=== PATIENT | male | born 1960 ===

== ENCOUNTER 2022-05-12 16:02 | Emergency (ER) | payer SELFPAY ==
[~2022-05-12] VITALS: Ht 177 cm; Wt 83.0 kg
[2022-05-12] MEDS ORDERED: LACTATED RINGERS 1,000 ML IV STA (16:17)
--- NOTE | 2022-05-12 16:24 | ED Cardiac General ---
History of Present Illness General Chief Complaint: Chest Pain Stated Complaint: CHEST PAIN Nursing Triage Note: CHEST PAIN STARTING X 3 DAYS AGO. SENT OVER FROM THE CLINIC VIA EMS. PT TOOK ASA AT HOME AND NITRO PASTE WAS PLACED ON CHEST BY EMS. Source: patient, RN/MD, EMS Exam Limitations: no limitations History of Present Illness Date Seen by Provider: May 12, 2022 Time Seen by Provider: 16:07 Initial Comments 61-year-old male with no pertinent past medical history coming in via EMS from [facility] due to chest pain. The patient states he felt like his heart was racing on Wednesday and had chest discomfort at that time. Is intermittently happened for few minutes at a time. Started again earlier today, felt like his heart was "beating through his neck". States he drinks 2 cups of coffee a day roughly drinks roughly 2 beers a day, but Wednesday night did have roughly 8 beers while playing poker with friends. Denies this ever happening before. Denies any history of CAD, no cardiac stenting, no prior history of DVT or PE, no lower extremity swelling or pain, no hormone use, no hemoptysis, no recent surgery, no recent long travel. Feels normal right now and back to baseline. He took full dose aspirin earlier today. Allergies and Home Medications Allergies Coded Allergies: No Known Drug Allergies (Unverified , 05/12/22) Patient Home Medication List Home Medication List Reviewed: Yes Review of Systems Review of Systems Constitutional: No fever EENTM: No Symptoms Reported Respiratory: No Symptoms Reported Cardiovascular: See HPI Gastrointestinal: No Symptoms Reported Genitourinary: No Symptoms Reported Musculoskeletal: no symptoms reported Skin: no symptoms reported Psychiatric/Neurological: No Symptoms Reported Endocrine: No Symptoms Reported Past Poglhma-Wwopaa-Vjdnhd Hx Patient Social History Tobacco Use?: Yes Smoking Status: Current Everyday Smoker Substance use?: No Alcohol Use?: Yes Alcohol Frequency: Couple times a week Immunizations Up To Date First/Initial COVID19 Vaccinat: UNKNOWN COVID19 Vaccine Diplomatic Interpreter/Translator: SUDHIR Past Medical History Surgeries: No Physical Exam Vital Signs Vital Signs - First Documented 05/12/22 16:06 Temp 36.3 Pulse 92 Resp 16 B/P (MAP) 112/83 (93) Pulse Ox 97 O2 Delivery Room Air Capillary Refill : Less Than 3 Seconds Height, Weight, BMI Height: '" Weight: lbs. oz. kg; 26.00 BMI Method: General Appearance: No Apparent Distress, WD/WN HEENT: PERRL/EOMI, Normal ENT Inspection, Pharynx Normal Neck: Full Range of Motion, Normal Inspection, Non Tender, Supple Respiratory: Chest Non Tender, Lungs Clear, Normal Breath Sounds, No Accessory Muscle Use, No Respiratory Distress Cardiovascular: Regular Rate, Rhythm, No Edema, Normal Peripheral Pulses Gastrointestinal: Normal Bowel Sounds, Non Tender, Soft; No Distended, No Guarding Extremity: Normal Capillary Refill, Normal Inspection, Normal Range of Motion, Non Tender, No Calf Tenderness, No Pedal Edema Neurologic/Psychiatric: Alert, No Motor/Sensory Deficits, Normal Mood/Affect Skin: Normal Color, Warm/Dry Progress/Results/Core Measures Results/Orders Lab Results Laboratory Tests Test 05/12/22 16:10 Range/Units White Blood Count 7.3 4.3-11.0 10^3/uL Red Blood Count 4.45 4.30-5.52 10^6/uL Hemoglobin 15.4 13.3-17.7 g/dL Hematocrit 44 40-54 % Mean Corpuscular Volume 98 80-99 fL Mean Corpuscular Hemoglobin 35 H 25-34 pg Mean Corpuscular Hemoglobin Concent 35 32-36 g/dL Red Cell Distribution Width 11.7 10.0-14.5 % Platelet Count 143 130-400 10^3/uL Mean Platelet Volume 10.7 9.0-12.2 fL Immature Granulocyte % (Auto) 0 % Neutrophils (%) (Auto) 51 42-75 % Lymphocytes (%) (Auto) 33 12-44 % Monocytes (%) (Auto) 8 0-12 % Eosinophils (%) (Auto) 6 0-10 % Basophils (%) (Auto) 1 0-10 % Neutrophils # (Auto) 3.8 1.8-7.8 10^3/uL Lymphocytes # (Auto) 2.4 1.0-4.0 10^3/uL Monocytes # (Auto) 0.6 0.0-1.0 10^3/uL Eosinophils # (Auto) 0.5 H 0.0-0.3 10^3/uL Basophils # (Auto) 0.1 0.0-0.1 10^3/uL Immature Granulocyte # (Auto) 0.0 0.0-0.1 10^3/uL Prothrombin Time 14.0 12.2-14.7 SEC INR Comment 1.0 0.8-1.4 Activated Partial Thromboplast Time 36 H 24-35 SEC Sodium Level 141 135-145 MMOL/L Potassium Level 4.2 3.6-5.0 MMOL/L Chloride Level 104 98-107 MMOL/L Carbon Dioxide Level 28 21-32 MMOL/L Anion Gap 9 5-14 MMOL/L Blood Urea Nitrogen 12 7-18 MG/DL Creatinine 1.35 H 0.60-1.30 MG/DL Estimat Glomerular Filtration Rate 60 BUN/Creatinine Ratio 9 Glucose Level 153 H 70-105 MG/DL Calcium Level 8.9 8.5-10.1 MG/DL Corrected Calcium 8.7 8.5-10.1 MG/DL Magnesium Level 2.0 1.6-2.4 MG/DL Total Bilirubin 0.5 0.1-1.0 MG/DL Aspartate Amino Transf (AST/SGOT) 148 H 5-34 U/L Alanine Aminotransferase (ALT/SGPT) 190 H 0-55 U/L Alkaline Phosphatase 83 40-136 U/L Troponin I < 0.028 <0.028 NG/ML Total Protein 6.8 6.4-8.2 GM/DL Albumin 4.2 3.2-4.5 GM/DL Lipase 84 H 8-78 U/L My Orders Orders - BUCK PATEL MD Ekg Tracing (05/12/22 16:05) Cbc With Automated Diff (05/12/22 16:17) Magnesium (05/12/22 16:17) Chest 1 View, Ap/Pa Only (05/12/22 16:17) Ekg Tracing (05/12/22 16:17) Comprehensive Metabolic Panel (05/12/22 16:17) Protime With Inr (05/12/22 16:17) Partial Thromboplastin Time (05/12/22 16:17) O2 (05/12/22 16:17) Monitor-Rhythm Ecg Trace Only (05/12/22 16:17) Ed Iv/Invasive Line Start (05/12/22 16:17) Lipase (05/12/22 16:17) Troponin I Angela (05/12/22 16:17) Ekg Tracing (05/12/22 16:17) Diltiazem Cd 24 Hr Capsule (Cardizem Cd (05/12/22 16:30) Lactated Ringers (Lr 1000 Ml Iv Solution (05/12/22 16:17) Medications Given in ED Current Medications Medications Dose Ordered Sig/Salomon Route Start Time Stop Time Status Last Admin Dose Admin Diltiazem HCl 180 mg ONCE ONCE PO 05/12/22 16:30 05/12/22 16:31 DC 05/12/22 16:44 180 MG Vital Signs/I&O 05/12/22 16:06 Temp 36.3 Pulse 92 Resp 16 B/P (MAP) 112/83 (93) Pulse Ox 97 O2 Delivery Room Air Blood Pressure Mean: 93 Progress Progress Note : Progress Note 61-year-old male with above history coming in due to palpitations and chest pain earlier. ABCs were intact and vitals were stable on presentation. While hooking up the patient to the EKG machine, he went into SVT which was captured on the EKG with a rate of 184, narrow. It was at this time he felt the palpitations and states this is a exact sensation he was feeling earlier. He broke the SVT within a minute by himself, normal sinus rhythm, and now is back to baseline. He is not having chest pain at this time. I suspect the patient is going into SVT either due to the alcohol he drinks versus caffeine versus some other etiology. An IV was placed and he was given a bolus of fluids, basic labs sent, and he was given oral Cardizem. Chest x-ray clear with no signs of pneumonia or pneumothorax on my interpretation. Basic labs significant for mild transaminitis which is unclear, could be due to alcohol. We will refer him back to his PCP regarding this. Troponin is negative, given that his discomfort is been going on most of the day, very unlikely to be ACS related. No clinical signs of a DVT on exam. I believe he is otherwise stable for discharge with outpatient follow-up. He was sent home with strict return precautions. Initial ECG Impression Date: May 12, 2022 Initial ECG Impression Time: 16:08 Initial ECG Rate: 184 Initial ECG Rhythm: SVT Comment Narrow QRS, borderline left axis deviation, no STEMI EKG : EKG Time: 16:10 Rate: 88 Rhythm: Normal Sinus Comment Narrow QRS, borderline left axis deviation, no STEMI, compared to prior EKG, he is no longer in SVT Diagnostic Imaging Diagonstic Imaging: Xray (chest) Comments [facility]. [place], [place] NAME: JOSELIN DEWITT [facility] REC#: [id number] PT STATUS: REG ER : 1960 PHYSICIAN: BUCK PATEL MD ADMIT DATE: 05/12/22/ER Draft Date of Exam:05/12/22 CHEST 1 VIEW, AP/PA ONLY INDICATION: Chest pain. TIME OF EXAM: 4:25 p.m. No prior studies are available for comparison. FINDINGS: The heart size is normal. The pulmonary vascularity is unremarkable. The lungs are clear. No infiltrate, effusion or pneumothorax is detected. IMPRESSION: No acute cardiopulmonary process is detected. Dictated on workstation # [id number] Dict: 05/12/22 165 Trans: 05/12/22 165 [id number] Interpreted by: IVELISSE STYLES MD Electronically signed by: Departure Impression Primary Impression: SVT (supraventricular tachycardia) Additional Impression: Transaminitis Disposition: 01 HOME, SELF-CARE Condition: Improved Departure-Patient Inst. Decision time for Depature: 17:02 Referrals: [facility] [place] (PCP/Family) Primary Care Physician Patient Instructions: Paroxysmal Supraventricular Tachycardia (DC) Add. Discharge Instructions: You are going into a rhythm called SVT. This makes your heart rate go very fast and you can feel chest discomfort at that time. Things like caffeine and alcohol can make this come back more. Follow-up with your regular doctor regarding this, there are sometimes medications you can be on if this occurs frequently. Otherwise I would try to limit your alcohol and caffeine. Your liver enzymes were also elevated. This could be due to alcohol. Please discuss this with your regular doctor to have them rechecked soon to make sure they improve. They may need to do further workup if the numbers do not improve on their own. Work/School Note: Work Release Form Date Seen in the Emergency Department: May 12, 2022 Return to Work: May 13, 2022 Restrictions: No Restrictions BUCK PATEL MD May 12, 2022 16:24
[2022-05-12 16:29] LABS: BASOPHILS # (AUTO) 0.1 10^3/uL (0.0-0.1); BASOPHILS % (AUTO) 1 % (0-10); EOSINOPHILS # (AUTO) 0.5 10^3/uL (0.0-0.3); EOSINOPHILS % (AUTO) 6 % (0-10); HEMATOCRIT 44 % (40-54); HEMOGLOBIN 15.4 g/dL (13.3-17.7); LYMPHOCYTES # (AUTO) 2.4 10^3/uL (1.0-4.0); LYMPHOCYTES % (AUTO) 33 % (12-44); MEAN CORPUSCULAR HEMOGLOBIN 35 pg (25-34); MEAN CORPUSCULAR HGB CONC 35 g/dL (32-36); MEAN CORPUSCULAR VOLUME 98 fL (80-99); MEAN PLATELET VOLUME 10.7 fL (9.0-12.2); MONOCYTES # (AUTO) 0.6 10^3/uL (0.0-1.0); MONOCYTES % (AUTO) 8 % (0-12); NEUTROPHILS # (AUTO) 3.8 10^3/uL (1.8-7.8); NEUTROPHILS % (AUTO) 51 % (42-75); PLATELET COUNT 143 10^3/uL (130-400); WHITE BLOOD COUNT 7.3 10^3/uL (4.3-11.0)
[2022-05-12 16:37] LABS: ALBUMIN 4.2 GM/DL (3.2-4.5); POTASSIUM 4.2 MMOL/L (3.6-5.0)
[2022-05-12 16:39] LABS: CALCIUM 8.9 MG/DL (8.5-10.1)
[2022-05-12 16:40] LABS: TOTAL PROTEIN 6.8 GM/DL (6.4-8.2)
[2022-05-12 16:42] LABS: BILIRUBIN,TOTAL 0.5 MG/DL (0.1-1.0)
[2022-05-12 16:43] LABS: CREATININE SERUM 1.35 MG/DL (0.60-1.30)
--- NOTE | 2022-05-12 16:54 | Diagnostic Imaging Report ---
INDICATION: Chest pain. TIME OF EXAM: 4:25 p.m. No prior studies are available for comparison. FINDINGS: The heart size is normal. The pulmonary vascularity is unremarkable. The lungs are clear. No infiltrate, effusion or pneumothorax is detected. IMPRESSION: No acute cardiopulmonary process is detected. Dictated by: Dictated on workstation # [id number]
[2022-05-12 17:11] VITALS: BP 90/72
== END 2022-05-12 17:11 | disposition home or self-care (01) ==
LOC: EDUNIT# 16:02 → ER 16:07
DX: I47.1 Supraventricular tachycardia (principal); R74.01 Elevation of levels of liver transaminase levels; F17.200 Nicotine dependence, unspecified, uncomplicated; Z28.311 Partially vaccinated for COVID-19; Z79.82 Long term (current) use of aspirin
CPT/HCPCS: 36415; 71045; 80053; 83690; 83735; 84484; 85025; 85610; 85730; 93005; 93041

== ENCOUNTER 2022-11-23 10:30 | Observation (INO) | payer SELFPAY ==
[2022-11-23] VITALS (8 sets, daily range): BP systolic 112–138; BP diastolic 79–109
[~2022-11-23] VITALS: Ht 177.8 cm; Wt 82.0 kg
--- NOTE | 2022-11-23 10:52 | ED Cardiac General ---
History of Present Illness General Chief Complaint: Cardiac/General Problems Stated Complaint: ELEVATED HEART RATE Source: patient, EMS Exam Limitations: no limitations History of Present Illness Date Seen by Provider: Nov 23, 2022 Time Seen by Provider: 10:41 Initial Comments Patient is a 61-year-old male who presents to the emergency department by EMS chief complaint palpitations/SVT onset this morning. He was brought from [facility], he had vagal maneuvers done there which resolved his SVT back down to a heart rate in the 70s. Just prior to arrival in the ambulance he went back up and SVT in the 160s. Spontaneously resolved without intervention prior to rolling into the emergency department. Patient had SVT per review of the medical record in April of this year as well and was sent home has not had any cardiology follow-up. He states in the last 3 or 4 days he has developed mid scapular pain associated with emotional stress, arguing with somebody. He states it radiated into his shoulders made him short of breath and's very sweaty. He had left arm pain as well. That resolved after Wednesday. He states that with the SVT he had similar pain this morning. No nausea. Patient has a history of hypercholesterolemia and smoking. He does have family history of coronary disease in his father who has since . He believes that his father was young when he had onset of heart disease. No recent illnesses, fevers, chills, productive cough, problems with bowel or bladder Timing/Duration: 1 hour, resolved prior to arrival Severity: moderate Location: shoulder Activities at Onset: emotional stress Prior CP/Workup: no prior chest pain, no prior cardiac workup NTG SL TRADES HELPER: No ASA po TRADES HELPER: No Associated Systoms: Diaphoresis, Weakness Allergies and Home Medications Allergies Coded Allergies: No Known Drug Allergies (Unverified , 05/12/22) Patient Home Medication List Home Medication List Reviewed: Yes Aspirin (Aspirin EC) 81 Mg Tablet.dr, 81 MG PO HS, (Reported) Entered as Reported by: MISSAEL FARNSWORTH on 11/24/22 104 Last Action: Reviewed Atorvastatin Calcium (Atorvastatin Calcium) 20 Mg Tablet, 20 MG PO HS, (Reported) Entered as Reported by: MISSAEL FARNSWORTH on 11/24/22 1048 Last Action: Reviewed Metoprolol Succinate (Toprol Xl) 50 Mg Tab.er.24h, 50 MG PO BID Prescribed by: PADMINI LUU on 11/25/22 0931 Review of Systems Review of Systems Constitutional: see HPI Respiratory: Shortness of Air Cardiovascular: Chest Pain, Palpitations Genitourinary: No Symptoms Reported Musculoskeletal: other (arm pain (left)) Skin: no symptoms reported Psychiatric/Neurological: No Symptoms Reported Past Jtlchhm-Qphldb-Mhmogr Hx Patient Social History Tobacco Use?: Yes Tobacco type used: Cigarettes Smoking Status: Current Someday Smoker Substance use?: No Alcohol Use?: Yes Alcohol type: Wine Pt feels they are or have been: No Immunizations Up To Date First/Initial COVID19 Vaccinat: UNKNOWN Second COVID19 Vaccination Ko: UNKNOWN Third COVID19 Vaccination Date: UNKNOWN Past Medical History Surgery/Hospitalization HX: LIVER PROBLEMS Surgeries: No Physical Exam Vital Signs Vital Signs - First Documented 11/23/22 10:32 Temp 36.8 Pulse 74 Resp 20 B/P (MAP) 106/81 (89) Pulse Ox 98 Capillary Refill : Height, Weight, BMI Height: '" Weight: lbs. oz. kg; 26.00 BMI Method: General Appearance: No Apparent Distress, WD/WN HEENT: PERRL/EOMI Neck: Normal Inspection Respiratory: Lungs Clear, Normal Breath Sounds, No Accessory Muscle Use Cardiovascular: Regular Rate, Rhythm, Normal Peripheral Pulses Gastrointestinal: Normal Bowel Sounds, Non Tender, Soft Extremity: Normal Capillary Refill, Normal Inspection, Normal Range of Motion Neurologic/Psychiatric: Alert, Oriented x3, No Motor/Sensory Deficits, Normal Mood/Affect Skin: Normal Color, Warm/Dry Progress/Results/Core Measures Results/Orders Lab Results Laboratory Tests Test 11/23/22 10:42 Range/Units White Blood Count 10.2 4.3-11.0 10^3/uL Red Blood Count 4.67 4.30-5.52 10^6/uL Hemoglobin 16.1 13.3-17.7 g/dL Hematocrit 46 40-54 % Mean Corpuscular Volume 98 80-99 fL Mean Corpuscular Hemoglobin 35 H 25-34 pg Mean Corpuscular Hemoglobin Concent 35 32-36 g/dL Red Cell Distribution Width 11.9 10.0-14.5 % Platelet Count 140 130-400 10^3/uL Mean Platelet Volume 11.3 9.0-12.2 fL Immature Granulocyte % (Auto) 0 % Neutrophils (%) (Auto) 73 42-75 % Lymphocytes (%) (Auto) 16 12-44 % Monocytes (%) (Auto) 9 0-12 % Eosinophils (%) (Auto) 1 0-10 % Basophils (%) (Auto) 1 0-10 % Neutrophils # (Auto) 7.4 1.8-7.8 10^3/uL Lymphocytes # (Auto) 1.7 1.0-4.0 10^3/uL Monocytes # (Auto) 0.9 0.0-1.0 10^3/uL Eosinophils # (Auto) 0.1 0.0-0.3 10^3/uL Basophils # (Auto) 0.1 0.0-0.1 10^3/uL Immature Granulocyte # (Auto) 0.0 0.0-0.1 10^3/uL Percent Immature Platelet Fraction 7.2 0.0-7.6 % Prothrombin Time 14.2 12.2-14.7 SEC INR Comment 1.1 0.8-1.4 Activated Partial Thromboplast Time 35 24-35 SEC Sodium Level 141 135-145 MMOL/L Potassium Level 4.2 3.6-5.0 MMOL/L Chloride Level 109 H 98-107 MMOL/L Carbon Dioxide Level 24 21-32 MMOL/L Anion Gap 8 5-14 MMOL/L Blood Urea Nitrogen 11 7-18 MG/DL Creatinine 1.18 0.60-1.30 MG/DL Estimat Glomerular Filtration Rate 71 BUN/Creatinine Ratio 9 Glucose Level 109 H 70-105 MG/DL Calcium Level 8.6 8.5-10.1 MG/DL Corrected Calcium 8.4 L 8.5-10.1 MG/DL Magnesium Level 2.1 1.6-2.4 MG/DL Total Bilirubin 0.7 0.1-1.0 MG/DL Aspartate Amino Transf (AST/SGOT) 34 5-34 U/L Alanine Aminotransferase (ALT/SGPT) 70 H 0-55 U/L Alkaline Phosphatase 85 40-136 U/L Troponin I 0.072 H <0.028 NG/ML Total Protein 7.0 6.4-8.2 GM/DL Albumin 4.2 3.2-4.5 GM/DL My Orders Orders - DANIEL KELLY MD Cbc And Automated Diff (11/23/22 10:50) Magnesium (11/23/22 10:50) Chest 1 View, Ap/Pa Only (11/23/22 10:50) Comprehensive Metabolic Panel (11/23/22 10:50) Protime With Inr (11/23/22 10:50) Partial Thromboplastin Time (11/23/22 10:50) O2 (11/23/22 10:50) Monitor-Rhythm Ecg Trace Only (11/23/22 10:50) Ed Iv/Invasive Line Start (11/23/22 10:50) Troponin I Angela (11/23/22 10:50) Vital Signs/I&O 11/23/22 10:32 Temp 36.8 Pulse 74 Resp 20 B/P (MAP) 106/81 (89) Pulse Ox 98 Progress Progress Note : Time: 11:47 Progress Note Patient seen and evaluated by me. Evaluation today includes physical exam and " chest pain protocol". This includes CBC, Chem-12, coag profile, serum magnesium, troponin, EKG and single view chest x-ray. Patient was given 324 mg of baby aspirin prior to arrival. Pertinent physical exam findings include wel l-developed well-nourished male in no acute distress, normal sinus rhythm on the monitor without noted ectopy. Blood pressure in the 110 systolic range. He is afebrile, normal oxygen saturations. His heart is regular, lungs are clear abdomen is soft. No lower extremity edema. Differential diagnosis includes SVT, ACS, dehydration Labs independently reviewed and interpreted by me. As well as EKG and chest x- ray. His EKG is normal sinus rhythm without ST segment elevation or depression, noted occasional ectopy. His chest x-ray shows no focal infiltrate or effusion, normal mediastinal silhouette. Poor inspiratory effort. CBC is normal, chemistry is normal. His troponin is elevated at 0.072. His coags are within normal limits. Case was discussed with Dr. Godwin hospitalist on for [facility] who is agreeable to admission to the cardiac stepdown floor. In light of the patient's intrascapular pain, significant diaphoresis with "emotional" exertion and then the dysrhythmia this morning with similar symptoms I feel like the patient would be best served by evaluation with cardiology. His risk factors for ACS are smoking and hypercholesterolemia as well as age. He also has family history. Patient will be admitted to cardiac stepdown with consultat ion with Dr. Cevallos after he gets to the floor as Dr. Cevallos is currently in the [facility] [facility] with a STEMI. Patient is made aware of the plan of care and is agreeable. All questions are sought and answered. Initial ECG Impression Date: Nov 23, 2022 Initial ECG Impression Time: 10:36 Initial ECG Rate: 76 Initial ECG Rhythm: Normal Sinus Initial ECG Intervals Normal intervals, no ST segment elevation or depression, occasional ectopy Diagnostic Imaging Diagonstic Imaging: Xray Plain Films/CT/US/NM/MRI: chest Comments [facility], [place] NAME: JOSELIN DEWITT [facility] REC#: [id number] PT STATUS: REG ER : 1960 PHYSICIAN: DANIEL KELLY MD ADMIT DATE: 11/23/22/ER Signed Date of Exam:11/23/22 CHEST 1 VIEW, AP/PA ONLY INDICATION: Chest pain. COMPARISON: 05/12/2022 TECHNIQUE: Single radiograph of the chest dated 11/23/2022. FINDINGS: The cardiac silhouette is within normal limits in size. No significant pulmonary vascular congestion. The left lung is clear. Right basilar predominantly interstitial opacities are present, slightly increased from the prior examination, particularly within the right midlung. No significant pleural effusion. No pneumothorax. No acute osseous abnormality. IMPRESSION: Mild right basilar interstitial opacities, felt to relate to mild atelectasis and/or pneumonitis. Dictated by: Dictated on workstation # [id number] Dict: 11/23/22 1118 Trans: 11/23/22 1130 [id number] Interpreted by: MALIKA RUTLEDGE MD Electronically signed by: MALIKA RUTLEDGE MD 11/23/22 1130 Departure Communication (Admissions) Discussed with Dr Godwin Impression Primary Impression: Chest pain Qualified Codes: R07.9 - Chest pain, unspecified Additional Impressions: SVT (supraventricular tachycardia) Elevated troponin I level Disposition: ADMITTED INPATIENT Condition: Stable Admissions Decision to Admit Reason: Admit from ER (General) Decision to Admit/Date: Nov 23, 2022 Time/Decision to Admit Time: 11:45 Departure-Patient Inst. Referrals: [facility] (PCP/Family) Primary Care Physician Scripts Metoprolol Succinate (Toprol Xl) 50 Mg Tab.er.24h 50 MG PO BID, #60 TAB 3 Refills Prov: PADMINI LUU 11/25/22 Copy Copies To 1: TIFFANIE GARCIA KATHRYN M MD Nov 23, 2022 10:52
[2022-11-23 10:58] LABS: BASOPHILS # (AUTO) 0.1 10^3/uL (0.0-0.1); BASOPHILS % (AUTO) 1 % (0-10); EOSINOPHILS # (AUTO) 0.1 10^3/uL (0.0-0.3); EOSINOPHILS % (AUTO) 1 % (0-10)
[2022-11-23 11:00] LABS: HEMATOCRIT 46 % (40-54); HEMOGLOBIN 16.1 g/dL (13.3-17.7); LYMPHOCYTES # (AUTO) 1.7 10^3/uL (1.0-4.0); LYMPHOCYTES % (AUTO) 16 % (12-44); MEAN CORPUSCULAR HEMOGLOBIN 35 pg (25-34); MEAN CORPUSCULAR HGB CONC 35 g/dL (32-36); MEAN CORPUSCULAR VOLUME 98 fL (80-99); MEAN PLATELET VOLUME 11.3 fL (9.0-12.2); MONOCYTES # (AUTO) 0.9 10^3/uL (0.0-1.0); MONOCYTES % (AUTO) 9 % (0-12); NEUTROPHILS # (AUTO) 7.4 10^3/uL (1.8-7.8); NEUTROPHILS % (AUTO) 73 % (42-75); PLATELET COUNT 140 10^3/uL (130-400); WHITE BLOOD COUNT 10.2 10^3/uL (4.3-11.0)
[2022-11-23 11:02] LABS: ALBUMIN 4.2 GM/DL (3.2-4.5); POTASSIUM 4.2 MMOL/L (3.6-5.0)
[2022-11-23 11:03] LABS: CALCIUM 8.6 MG/DL (8.5-10.1)
[2022-11-23 11:04] LABS: INR 1.1 (0.8-1.4); PROTHROMBIN TIME PATIENT 14.2 SEC (12.2-14.7)
[2022-11-23 11:06] LABS: BILIRUBIN,TOTAL 0.7 MG/DL (0.1-1.0)
[2022-11-23 11:08] LABS: CREATININE SERUM 1.18 MG/DL (0.60-1.30)
[2022-11-23 11:11] LABS: MAGNESIUM 2.1 MG/DL (1.6-2.4)
--- NOTE | 2022-11-23 11:21 | Diagnostic Imaging Report ---
INDICATION: Chest pain. COMPARISON: 05/12/2022 TECHNIQUE: Single radiograph of the chest dated 11/23/2022. FINDINGS: The cardiac silhouette is within normal limits in size. No significant pulmonary vascular congestion. The left lung is clear. Right basilar predominantly interstitial opacities are present, slightly increased from the prior examination, particularly within the right midlung. No significant pleural effusion. No pneumothorax. No acute osseous abnormality. IMPRESSION: Mild right basilar interstitial opacities, felt to relate to mild atelectasis and/or pneumonitis. Dictated by: Dictated on workstation # [id number]
--- NOTE | 2022-11-23 13:25 | History & Physical ---
REINIER WILSON 11/23/22 1325: HPI History of Present Illness: Patient is a 61-year-old male who presents to the emergency department by EMS chief complaint palpitations/SVT onset this morning. Last patient said he got into an argument with another person. On Wednesday morning, he woke up and had left scapular burning/pain. He got mad at this person again Wednesday afternoon and he again had burning/pain across is upper back. He said he was good over the weekend until last night. He said last night he had a little but of a cough and took robitussin.He subsequently had quite a bit of discomfort in his back and also described muscle weakness. He decided to go to [facility] this morning to get checked out. He had SVT at the clinic and vagal maneuvers were done there which resolved his SVT back down to a heart rate in the 70s. Just prior to arrival in the ambulance he went back up and SVT in the 160s. HR spontaneously resolved without intervention prior to presenting to ED. Patient states that in April he had a heart attack. On review of records he presented to the ED and was diagnosed with supraventricular tachycardia and transaminitis. At this time they told him to limit alcohol and caffiene intake and follow with his doctor for the transaminits. Denies chest pain, headache, vision changes, congestion, shortness of breath, abdominal pain, fever, dysuria, constipation, diarrhea, hematochezia, or sick contacts. Endorses cough for the last couple of days and night sweats. Source: patient Exam Limitations: no limitations Date seen by provider: Nov 23, 2022 Time Seen by Provider: 14:00 Attending Physician [place] [place] PCP Admitting Physician: Socorro Godwin MD Attending Physician: Socorro Godwni MD Consult Date of Admission Nov 23, 2022 at 12:11 Home Medications Home Medications Reviewed patient Home Medication Reconciliation performed by pharmacy medication reconciliations case technician and/or nursing. Patients Allergies have been reviewed. Allergies Coded Allergies: No Known Drug Allergies (Unverified , 05/12/22) WYV-Nvajdd-Vbndng Hx Patient Social History Smoking Status: Current Everyday Smoker (25 pack year history) Approx how many per day: 5 Alcohol Use?: Yes (3-4 cups of red wine per week) Tobacco type used: Cigarettes Immunizations Up To Date Influenza Vaccine Up-to-Date: Yes; Up-to-Date First/Initial COVID19 Vaccinat: UNKNOWN Second COVID19 Vaccination Ko: UNKNOWN Third COVID19 Vaccination Date: UNKNOWN Past Medical History HLD NAFLD Family Medical History Significant Family History: Heart Disease (father) Review of Systems ([facility]) Constitutional: see HPI EENTM: see HPI Respiratory: see HPI Cardiovascular: see HPI Gastrointestinal: see HPI Genitourinary: see HPI Musculoskeletal: see HPI Skin: see HPI Psychiatric/Neurological: See HPI Reviewed Test Results Reviewed Test Results Lab Laboratory Tests 11/23/22 10:42: White Blood Count 10.2, Red Blood Count 4.67, Hemoglobin 16.1, Hematocrit 46, Mean Corpuscular Volume 98, Mean Corpuscular Hemoglobin 35H, Mean Corpuscular Hemoglobin Concent 35, Red Cell Distribution Width 11.9, Platelet Count 140, Mean Platelet Volume 11.3, Immature Granulocyte % (Auto) 0, Neutrophils (%) (Auto) 73, Lymphocytes (%) (Auto) 16, Monocytes (%) (Auto) 9, Eosinophils (%) (Auto) 1, Basophils (%) (Auto) 1, Neutrophils # (Auto) 7.4, Lymphocytes # (Auto) 1.7, Monocytes # (Auto) 0.9, Eosinophils # (Auto) 0.1, Basophils # (Auto) 0.1, Immature Granulocyte # (Auto) 0.0, Percent Immature Platelet Fraction 7.2, Prothrombin Time 14.2, INR Comment 1.1, Activated Partial Thromboplast Time 35, Sodium Level 141, Potassium Level 4.2, Chloride Level 109H, Carbon Dioxide Level 24, Anion Gap 8, Blood Urea Nitrogen 11, Creatinine 1.18, Estimat Glomerular Filtration Rate 71, BUN/Creatinine Ratio 9, Glucose Level 109H, Calcium Level 8.6, Corrected Calcium 8.4L, Magnesium Level 2.1, Total Bilirubin 0.7, Aspartate Amino Transf (AST/SGOT) 34, Alanine Aminotransferase (ALT/SGPT) 70H, Alkaline Phosphatase 85, Troponin I 0.072H, Total Protein 7.0, Albumin 4.2 Radiology Chest xray: Mild right basilar interstitial opacities, felt to relate to mild atelectasis and/or pneumonitis. Physical Exam-([facility]) Physical Exam Vital Signs VS - Last 72 Hours, by Label 11/23/22 11/23/22 11/23/22 11/23/22 10:32 12:09 12:20 12:30 Temp 36.8 36.8 Pulse 74 71 74 Resp 20 13 B/P (MAP) 106/81 (89) 116/87 Pulse Ox 98 100 100 O2 Delivery Room Air Room Air 11/23/22 11/23/22 12:30 13:00 Pulse 74 73 Resp 12 22 B/P (MAP) 138/109 (119) 125/87 (100) Pulse Ox 100 99 O2 Delivery Room Air Room Air Capillary Refill : General Appearance: WD/WN, no apparent distress Respiratory: chest non-tender, lungs clear, normal breath sounds, no respiratory distress, no accessory muscle use Cardiovascular: regular rate, rhythm, no edema, no gallop, no murmur Gastrointestinal: normal bowel sounds, non tender, soft, no organomegaly, no pulsatile mass Extremities: normal range of motion, non-tender, normal inspection, no pedal edema, no calf tenderness, normal capillary refill Neurologic/Psychiatric: alert, normal mood/affect, oriented x 3 Skin: normal color, warm/dry Assessment/Plan Assessment/Plan Admission Status: Observation (1) Elevated troponin I level Status: Acute Assessment & Plan: - Troponin level of .072 on admission - CXR showing milf right basilar interstitial opacities, felt to be related to mild atelectasis and/or pneumonitis - EKG normal on admission - Continue heparin drip - Nitroglycerin PRN - Repeat troponin - Cardiology consulted (2) SVT (supraventricular tachycardia) Status: Chronic Assessment & Plan: - Patient was diagnosed with SVT in April of 2022. 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 However, he said he has never had imaging done. - Consider outpatient RUQ US Clinical Quality Measures AMI/AHF: ASA po Prior to arrival: No SOCORRO GODWIN MD 11/23/22 1508: Home Medications Allergies Coded Allergies: No Known Drug Allergies (Unverified , 05/12/22) QOA-Gopyni-Sirzhv Hx Patient Social History Living Status: Lives at home independently Review of Systems ([facility]) Constitutional: No dizziness, No malaise, No weakness EENTM: nose congestion Respiratory: dyspnea on exertion Cardiovascular: palpitations Gastrointestinal: no symptoms reported; No abdominal pain, No constipation, No diarrhea, No nausea, No vomiting Genitourinary: no symptoms reported Musculoskeletal: back pain, neck pain Skin: no symptoms reported; No rash Psychiatric/Neurological: Anxiety Physical Exam-([facility]) Physical Exam General Appearance: WD/WN, no apparent distress Neck: non-tender, full range of motion, supple Respiratory: chest non-tender, lungs clear, normal breath sounds, no res piratory distress, no accessory muscle use Cardiovascular: normal peripheral pulses, regular rate, rhythm, no murmur Gastrointestinal: normal bowel sounds, non tender, soft Back: no CVA tenderness, no vertebral tenderness Extremities: normal range of motion, non-tender, normal inspection, no pedal edema, no calf tenderness, normal capillary refill Neurologic/Psychiatric: picker/puller II-XII nml as tested, no motor/sensory deficits, alert, normal mood/affect, oriented x 3 Skin: normal color, warm/dry Lymphatic: no adenopathy Assessment/Plan Assessment/Plan (1) SVT (supraventricular tachycardia) Status: Chronic Assessment & Plan: - Patient was diagnosed with SVT in April of 2022. 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 However, he said he has never had imaging done. - Consider outpatient RUQ US Supervisory-Addendum Brief Supervisory Addendum Verification and Attestation of Medical Student E/M Service A medical student performed and documented this service in my presence. I reviewed and verified all information documented by the medical student and made modifications to such information, when appropriate. I personally performed the physical exam and medical decision making. Socorro Godwin, Nov 23, 2022,15:06 Agree in Addition A/P SVT Elevated Troponin - Cardiology consulted, appreciate recommendations, rate controlled at this time, Echo pending, Likely type 2 due to tachycardia Elevated LFTs - Will get outpatient US, discussed importance of EtOH cessation HLD -On statin REINIER WILSON Nov 23, 2022 13:25 SOCORRO GODWIN MD Nov 23, 2022 15:08
[2022-11-23] MEDS ORDERED: NS IV 1000 ML 1,000 ML IV SCH (14:15)
[2022-11-23] MEDS ORDERED: NITROGLYCERIN 0.4 MG SL TABLETS BTL 25'S SL PRN (14:30)
[2022-11-23] MEDS ORDERED: HEParin 1000 UNIT/ML BOLUS (ACS THERAPY) IV PRN (14:30)
[2022-11-23] MEDS ORDERED: HEParin DRIP 25000 UNIT/500ML (ACS THERAPY) IV SCH (14:30)
[2022-11-23] MEDS ORDERED: ONDANSETRON INJECTION 4 MG/2 ML (SDV) IV PRN (14:30)
--- NOTE | 2022-11-23 14:52 | Consultation-Cardiology ---
HPI-Cardiology Cardiology Consultation: Date of Consultation 11/23/22 Time Seen by a Provider: 14:30 Date of Admission 11-23-22 Attending Physician [place] Admitting Physician Admitting Physician: Socorro Godwin MD Attending Physician: Socorro Godwin MD Consulting Physician Rashard Cevallos MD HPI: Chief Complaint: SVT Mr. Dewitt is a 61 yr old male admitted to [facility] from the ED with SVT. He reports he had an episode back in 2022 for which he was treated in the [facility] ED. He reports he has had episodes of palpitations since then that only last a few minutes. He reports last Wednesday he got into an argument and started to have pressure, tightness across his shoulders. He reports feeling a rapid heartbeat at that time. He states he felt diaphoretic. On Wednesday he again was in an argument and the discomfort in his shoulders (which had not resolved) became worse. He reports feeling generally weak and diaphoretic. This sens ation lasted off an on till this morning. He reports he felt he was coming down with a cold so he took 2 ibuprofen and a 2 OTC decongestants and he felt worse. He felt SOB, palpitations, weakness, diaphoretic and then he came to the ED. He states he is feeling better now. The tightness/discomfort in his shoulders is better at this time. Review of Systems-Cardiology Review of Systems Constitutional: chills; No fever; lightheadedness, malaise Eyes: No vision change Ears/Nose/Throat: No epistaxis, No recent hearing loss Respiratory: As described under HPI Cardiovascular: As described under HPI Gastrointestinal: No constipation, No diarrhea, No vomiting Genitourinary: No dysuria, No hematuria Musculoskeletal: no symptoms reported Skin: No rash on exposed areas, No ulcerations on exposed areas Psychiatric/Neurological: No anxiety, No depression, No seizure, No focal weakness, No syncope Hematologic: No bleeding abnormalities NHV-Lwfpne-Yrzegy Hx Patient Social History Smoking Status: Current Everyday Smoker (25 pack year history) Cigaretts per day: 5 Alcohol Use?: Yes (3-4 cups of red wine per week) Pt feels they are or have been: No Tobacco type used: Cigarettes Immunizations Up To Date Date of Influenza Vaccine: Nov 29, 2021 Past Medical History PMH As described under Assessment. Family Medical History Family Medical History: He believes his father may have had heart trouble, but he is unsure Allergies and Home Medications Allergies Coded Allergies: No Known Drug Allergies (Unverified , 05/12/22) Physical Exam-Cardiology Physical Exam Vital Signs/I&O 11/23/22 11/23/22 11/23/22 11/23/22 20:29 21:55 22:00 23:31 Temp 36.3 Pulse 120 64 Resp 23 B/P (MAP) 119/80 (93) Pulse Ox 97 97 O2 Delivery Room Air Room Air O2 Flow Rate 0.00 FiO2 21 11/24/22 11/24/22 11/24/22 11/24/22 00:00 01:00 02:00 04:00 Pulse 60 88 67 56 Resp 12 12 13 B/P (MAP) 122/74 (93) 112/75 (92) 104/82 (89) Pulse Ox 96 96 97 O2 Delivery Room Air Room Air Room Air 11/24/22 11/24/22 04:32 07:06 Temp 36.6 Pulse 62 11/24/22 00:00 Intake Total 650 ml Output Total 325 ml Balance 325 ml Capillary Refill : Constitutional: AAO x 3, well-developed, well-nourished HEENT: PERRL, hearing is well preserved, oral hygience is good Neck: No carotid bruit; carotid pulses are 2 + bilaterally Respiratory: No accessory muscle use, No respiratory distress; chest expansion is symmetric, chest is bilaterally symmetric, rhonchi (scattered) Cardiovascular: regular rate-rhythm; No JVD; S1 and S2 Gastrointestinal: No tender; soft, round; No guarding; audible bowel sounds Extremities: no lower extremity edema bilateral Neurologic/Psychiatric: other (moves all extremities) Skin: No rash on exposed areas, No ulcerations on exposed areas Data Review Labs Laboratory Tests 11/23/22 10:42: White Blood Count 10.2, Red Blood Count 4.67, Hemoglobin 16.1, Hematocrit 46, Mean Corpuscular Volume 98, Mean Corpuscular Hemoglobin 35H, Mean Corpuscular Hemoglobin Concent 35, Red Cell Distribution Width 11.9, Platelet Count 140, Mean Platelet Volume 11.3, Immature Granulocyte % (Auto) 0, Neutrophils (%) (Auto) 73, Lymphocytes (%) (Auto) 16, Monocytes (%) (Auto) 9, Eosinophils (%) (Auto) 1, Basophils (%) (Auto) 1, Neutrophils # (Auto) 7.4, Lymphocytes # (Auto) 1.7, Monocytes # (Auto) 0.9, Eosinophils # (Auto) 0.1, Basophils # (Auto) 0.1, Immature Granulocyte # (Auto) 0.0, Percent Immature Platelet Fraction 7.2, Prot hrombin Time 14.2, INR Comment 1.1, Activated Partial Thromboplast Time 35, Sodium Level 141, Potassium Level 4.2, Chloride Level 109H, Carbon Dioxide Level 24, Anion Gap 8, Blood Urea Nitrogen 11, Creatinine 1.18, Estimat Glomerular F iltration Rate 71, BUN/Creatinine Ratio 9, Glucose Level 109H, Calcium Level 8.6, Corrected Calcium 8.4L, Magnesium Level 2.1, Total Bilirubin 0.7, Aspartate Amino Transf (AST/SGOT) 34, Alanine Aminotransferase (ALT/SGPT) 70H, Alkaline Phosphatase 85, Troponin I 0.072H, Total Protein 7.0, Albumin 4.2 11/23/22 15:05: Troponin I 0.091H, Thyroid Stimulating Hormone (TSH) 1.24 11/24/22 05:39: White Blood Count 5.8, Red Blood Count 4.35, Hemoglobin 14.9, Hematocrit 42, Mean Corpuscular Volume 97, Mean Corpuscular Hemoglobin 34, Mean Corpuscular Hemoglobin Concent 35, Red Cell Distribution Width 11.7, Platelet Count 128L, Mean Platelet Volume 11.2, Immature Granulocyte % (Auto) 0, Neutrophils (%) (Auto) 43, Lymphocytes (%) (Auto) 34, Monocytes (%) (Auto) 12, Eosinophils (%) (Auto) 10, Basophils (%) (Auto) 1, Neutrophils # (Auto) 2.5, Lymphocytes # (Auto) 2.0, Monocytes # (Auto) 0.7, Eosinophils # (Auto) 0.6H, Basophils # (Auto) 0.1, Immature Granulocyte # (Auto) 0.0, Percent Immature Platelet Fraction 7.4, Sodium Level 141, Potassium Level 4.2, Chloride Level 110H, Carbon Dioxide Level 23, Anion Gap 8, Blood Urea Nitrogen 12, Creatinine 0.81, Estimat Glomerular Filtration Rate 102, BUN/Creatinine Ratio 15, Glucose Level 120H, Calcium Level 8.3L, Corrected Calcium 8.6, Total Bilirubin 0.5, Aspartate Amino Transf (AST/SGOT) 25, Alanine Aminotransferase (ALT/SGPT) 51, Alkaline Phosphatase 73, Total Protein 6.1L, Albumin 3.6 Radiology NAME: [facility] REC#: [id number] PT STATUS: REG ER : 1960 PHYSICIAN: DANIEL KELLY MD ADMIT DATE: 11/23/22/ER Signed Date of Exam:11/23/22 CHEST 1 VIEW, AP/PA ONLY INDICATION: Chest pain. COMPARISON: 05/12/2022 TECHNIQUE: Single radiograph of the chest dated 11/23/2022. FINDINGS: The cardiac silhouette is within normal limits in size. No significant pulmonary vascular congestion. The left lung is clear. Right basilar predominantly interstitial opacities are present, slightly increased from the prior examination, particularly within the right midlung. No significant pleural effusion. No pneumothorax. No acute osseous abnormality. IMPRESSION: Mild right basilar interstitial opacities, felt to relate to mild atelectasis and/or pneumonitis. Dictated by: Dictated on workstation # [id number] Dict: 11/23/22 1118 Trans: 11/23/22 1130 [id number] Interpreted by: MALIKA RUTLEDGE MD Electronically signed by: MALIKA RUTLEDGE MD 11/23/22 1130 ECG Impression ECG Initial ECG Rhythm: Normal Sinus A/P-Cardiology Assessment/Admission Diagnosis SVT - previously dx at time of ED visit to [facility] April 2022 - HR 200's per EMT services - treated with vagal maneuver Minimal troponin elevation - Probable type 2 OK likely secondary to tachycardia Mild liver enzyme elevation - undetermined etiology H/o tobacco use - cigs - cessation advised URI - management per medical services Discussion and Recomendations SVT - treat with BB as BP will allow - echocardiogram today Minimal troponin elevation - likely Type 2 OK secondary to tachycardia URI - management per medical services Further recs will be based on his hospital course We would like to thank medical services for this consult Clinical Quality Measures AMI/AHF: ASA po Prior to arrival: PADMINI Rocha Nov 23, 2022 14:52
--- NOTE | 2022-11-23 19:49 | Consultation-Cardiology ---
HPI-Cardiology Cardiology Consultation: Date of Consultation 11/23/22 Time Seen by a Provider: 18:15 Date of Admission Attending Physician [place] Admitting Physician Admitting Physician: Socorro Godwin MD Attending Physician: Socorro Godwin MD Consulting Physician MALENA HOPPER MD, MA, FACP, FACC, [facility], CCDS HPI: Chief Complaint: CC: Palpitations, chest discomfort Mr. Justice is a 61 yr old male admitted to [facility] from the ED with SVT. He reports he had an episode back in 2022 for which he was treated in the [facility] ED. He reports he has had episodes of palpitations since then that only last a few minutes. He reports last Wednesday he got into an argument and started to have pressure, tightness across his shoulders. He reports feeling a rapid heartbeat at that time. He states he felt diaphoretic. On Wednesday he again was in an argument and the discomfort in his shoulders (which had not resolved) became worse. He reports feeling generally weak and diaphoretic. This sensation lasted off an on till this morning. He reports he felt he was coming down with a cold so he took 2 ibuprofen and a 2 OTC decongestants and he felt worse. He felt SOB, palpitations, weakness, diaphoretic and then he came to the ED. He states he is feeling better now. The tightness/discomfort in his shoulders is better at this time. Review of Systems-Cardiology Review of Systems Constitutional: chills; No fever; lightheadedness, malaise Eyes: No vision change Ears/Nose/Throat: No epistaxis, No recent hearing loss Respiratory: As described under HPI Cardiovascular: As described under HPI Gastrointestinal: No constipation, No diarrhea, No vomiting Genitourinary: No dysuria, No hematuria Musculoskeletal: no symptoms reported Skin: No rash on exposed areas, No ulcerations on exposed areas Psychiatric/Neurological: No anxiety, No depression, No seizure, No focal weakness, No syncope Hematologic: No bleeding abnormalities HUF-Rowbnd-Flovbc Hx Patient Social History Living Status: Lives at home independently Smoking Status: Current Everyday Smoker (25 pack year history) Cigaretts per day: 5 Alcohol Use?: Yes (3-4 cups of red wine per week) Pt feels they are or have been: No Tobacco type used: Cigarettes Immunizations Up To Date Date of Influenza Vaccine: Nov 29, 2021 Past Medical History PMH As described under Assessment. Family Medical History Family Medical History: He believes his father may have had heart trouble, but he is unsure Allergies and Home Medications Allergies Coded Allergies: No Known Drug Allergies (Unverified , 05/12/22) Patient Home Medication List Home Medication List Reviewed: Yes Physical Exam-Cardiology Physical Exam Vital Signs/I&O 11/23/22 11/23/22 11/23/22 11/23/22 10:32 12:09 12:20 12:30 Temp 36.8 36.8 Pulse 74 71 74 Resp 20 13 B/P (MAP) 106/81 (89) 116/87 Pulse Ox 98 100 100 O2 Delivery Room Air Room Air 11/23/22 11/23/22 11/23/22 11/23/22 12:30 13:00 14:00 15:00 Pulse 74 73 69 62 Resp 12 22 21 8 B/P (MAP) 138/109 (119) 125/87 (100) 113/81 (92) 112/80 (91) Pulse Ox 100 99 99 98 O2 Delivery Room Air Room Air Room Air Room Air 11/23/22 11/23/22 15:30 16:13 Pulse 59 59 Resp 14 B/P (MAP) 114/89 (97) Pulse Ox 100 100 O2 Delivery Room Air Capillary Refill : Constitutional: AAO x 3, well-developed, well-nourished HEENT: PERRL, hearing is well preserved, oral hygience is good Neck: No carotid bruit; carotid pulses are 2 + bilaterally Respiratory: No accessory muscle use, No respiratory distress; chest expansion is symmetric, chest is bilaterally symmetric, rhonchi (scattered) Cardiovascular: regular rate-rhythm; No JVD; S1 and S2 Gastrointestinal: No tender; soft, round; No guarding; audible bowel sounds Extremities: no lower extremity edema bilateral Neurologic/Psychiatric: other (moves all extremities) Skin: No rash on exposed areas, No ulcerations on exposed areas Lymphatic: no adenopathy Data Review Labs Laboratory Tests 11/23/22 10:42: White Blood Count 10.2, Red Blood Count 4.67, Hemoglobin 16.1, Hematocrit 46, Mean Corpuscular Volume 98, Mean Corpuscular Hemoglobin 35H, Mean Corpuscular Hemoglobin Concent 35, Red Cell Distribution Width 11.9, Platelet Count 140, Mean Platelet Volume 11.3, Immature Granulocyte % (Auto) 0, Neutrophils (%) (Auto) 73, Lymphocytes (%) (Auto) 16, Monocytes (%) (Auto) 9, Eosinophils (%) (Auto) 1, Basophils (%) (Auto) 1, Neutrophils # (Auto) 7.4, Lymphocytes # (Auto) 1.7, Monocytes # (Auto) 0.9, Eosinophils # (Auto) 0.1, Basophils # (Auto) 0.1, Immature Granulocyte # (Auto) 0.0, Percent Immature Platelet Fraction 7.2, Prothrombin Time 14.2, INR Comment 1.1, Activated Partial Thromboplast Time 35, Sodium Level 141, Potassium Level 4.2, Chloride Level 109H, Carbon Dioxide Level 24, Anion Gap 8, Blood Urea Nitrogen 11, Creatinine 1.18, Estimat Glomerular Filtration Rate 71, BUN/Creatinine Ratio 9, Glucose Level 109H, Calcium Level 8.6, Corrected Calcium 8.4L, Magnesium Level 2.1, Total Bilirubin 0.7, Aspartate Amino Transf (AST/SGOT) 34, Alanine Aminotransferase (ALT/SGPT) 70H, Alkaline Phosphatase 85, Troponin I 0.072H, Total Protein 7.0, Albumin 4.2 11/23/22 15:05: Troponin I 0.091H, Thyroid Stimulating Hormone (TSH) 1.24 A/P-Cardiology Assessment/Admission Diagnosis SVT - previously dx at time of ED visit to [facility] April 2022 - HR 200's per EMT services - treated with vagal maneuver Minimal troponin elevation - NSTEMI suspected Mild liver enzyme elevation - undetermined etiology H/o tobacco use - cigs - cessation advised URI - management per medical services Discussion and Recomendations * DAPT * Beta-kai * Statin * Cath recommended. Rationale, procedure, risks, benefits, potential complicat ions, and alternatives of cath and possible ad hoc PCI reviewed. He understands and provides informed consent Clinical Quality Measures AMI/AHF: ASA po Prior to arrival: MALENA Sanders MD FACP FAC CCDS Nov 23, 2022 19:49
[2022-11-23] MEDS ORDERED: ASPIRIN 81 MG CHEWABLE TABLET PO ONE (20:00)
[2022-11-23] MEDS ORDERED: CLOPIDOGREL 75 MG TABLET PO ONE (20:00)
[2022-11-24] VITALS (21 sets, daily range): BP systolic 104–131; BP diastolic 55–96
[2022-11-24 05:54] LABS: BASOPHILS # (AUTO) 0.1 10^3/uL (0.0-0.1); BASOPHILS % (AUTO) 1 % (0-10); EOSINOPHILS # (AUTO) 0.6 10^3/uL (0.0-0.3); EOSINOPHILS % (AUTO) 10 % (0-10); HEMATOCRIT 42 % (40-54); HEMOGLOBIN 14.9 g/dL (13.3-17.7); LYMPHOCYTES % (AUTO) 34 % (12-44); MEAN CORPUSCULAR HEMOGLOBIN 34 pg (25-34); MEAN CORPUSCULAR HGB CONC 35 g/dL (32-36); MEAN CORPUSCULAR VOLUME 97 fL (80-99); MEAN PLATELET VOLUME 11.2 fL (9.0-12.2); MONOCYTES # (AUTO) 0.7 10^3/uL (0.0-1.0); MONOCYTES % (AUTO) 12 % (0-12); NEUTROPHILS # (AUTO) 2.5 10^3/uL (1.8-7.8); NEUTROPHILS % (AUTO) 43 % (42-75); PLATELET COUNT 128 10^3/uL (130-400); WHITE BLOOD COUNT 5.8 10^3/uL (4.3-11.0)
[2022-11-24 06:04] LABS: ALBUMIN 3.6 GM/DL (3.2-4.5); POTASSIUM 4.2 MMOL/L (3.6-5.0)
[2022-11-24 06:05] LABS: CALCIUM 8.3 MG/DL (8.5-10.1)
[2022-11-24 06:06] LABS: TOTAL PROTEIN 6.1 GM/DL (6.4-8.2)
[2022-11-24 06:08] LABS: BILIRUBIN,TOTAL 0.5 MG/DL (0.1-1.0)
[2022-11-24 06:10] LABS: CREATININE SERUM 0.81 MG/DL (0.60-1.30)
[2022-11-24] MEDS: RT-ALBUTEROL SULF 2.5 MG/3 ML PRE-MIX VIAL INH SCH ×3 (08:20→21:56)
[2022-11-24] MEDS ORDERED: HEParin (CATH LAB) 2,000 ML IV ONE (08:21)
[2022-11-24] MEDS ORDERED: LIDOCAINE 1% INJ 20 ML VIAL ONE (08:21)
--- NOTE | 2022-11-24 08:33 | Progress Note ---
REINIER WILSON 11/24/22 0833: Subjective Subjective/Events-last exam Patient resting comfortably in bed this morning. He says he is comfortable except for some mild right shoulder pain, coughing, and mucous production. He said this URI started a couple of days ago. In addition, he says he has a wart on his right groin that has been causing him discomfort. I explained to him this could be removed in the outpatient setting. Denies headache, vision changes, chest pain, sob, abdominal pain, dysuria, constipation, or diarrhea. Objective Exam Last Set of Vital Signs Vital Signs Date Time Temp Pulse Resp B/P (MAP) Pulse Ox O2 Delivery O2 Flow Rate FiO2 11/24/22 08:23 97 Room Air 0.00 21 11/24/22 07:06 62 11/24/22 04:32 36.6 11/24/22 04:00 13 104/82 (89) Capillary Refill : I&O Intake and Output 11/24/22 00:00 Intake Total 1150 ml Output Total 325 ml Balance 825 ml Intake Oral 650 ml IV Total 500 ml Output Urine Total 325 ml Daily Weight Change No General: Alert, Oriented X3, Cooperative, No Acute Distress Lungs: Clear to Auscultation, Normal Air Movement Heart: Regular Rate, Normal S1, Normal S2, No Murmurs Abdomen: Normal Bowel Sounds, Soft, No Tenderness, No Hepatosplenomegaly, No Masses Extremities: No Clubbing, No Cyanosis, No Edema, Normal Pulses, No Tenderness/Swelling Skin: Other (1-2cm wart on right inguinal region) Neuro: Normal Speech Psych/Mental Status: Mental Status NL, Mood NL Results/Procedures Lab Laboratory Tests 11/23/22 10:42: White Blood Count 10.2, Red Blood Count 4.67, Hemoglobin 16.1, Hematocrit 46, Mean Corpuscular Volume 98, Mean Corpuscular Hemoglobin 35H, Mean Corpuscular Hemoglobin Concent 35, Red Cell Distribution Width 11.9, Platelet Count 140, Mean Platelet Volume 11.3, Immature Granulocyte % (Auto) 0, Neutrophils (%) (Auto) 73, Lymphocytes (%) (Auto) 16, Monocytes (%) (Auto) 9, Eosinophils (%) (Auto) 1, Basophils (%) (Auto) 1, Neutrophils # (Auto) 7.4, Lymphocytes # (Auto) 1.7, Monocytes # (Auto) 0.9, Eosinophils # (Auto) 0.1, Basophils # (Auto) 0.1, Immature Granulocyte # (Auto) 0.0, Percent Immature Platelet Fraction 7.2, Prothrombin Time 14.2, INR Comment 1.1, Activated Partial Thromboplast Time 35, Sodium Level 141, Potassium Level 4.2, Chloride Level 109H, Carbon Dioxide Level 24, Anion Gap 8, Blood Urea Nitrogen 11, Creatinine 1.18, Estimat Glomerular Filtration Rate 71, BUN/Creatinine Ratio 9, Glucose Level 109H, Calcium Level 8.6, Corrected Calcium 8.4L, Magnesium Level 2.1, Total Bilirubin 0.7, Aspartate Amino Transf (AST/SGOT) 34, Alanine Aminotransferase (ALT/SGPT) 70H, Alkaline Phosphatase 85, Troponin I 0.072H, Total Protein 7.0, Albumin 4.2 11/23/22 15:05: Troponin I 0.091H, Thyroid Stimulating Hormone (TSH) 1.24 11/24/22 05:39: White Blood Count 5.8, Red Blood Count 4.35, Hemoglobin 14.9, Hematocrit 42, Mean Corpuscular Volume 97, Mean Corpuscular Hemoglobin 34, Mean Corpuscular H emoglobin Concent 35, Red Cell Distribution Width 11.7, Platelet Count 128L, Mean Platelet Volume 11.2, Immature Granulocyte % (Auto) 0, Neutrophils (%) (Auto) 43, Lymphocytes (%) (Auto) 34, Monocytes (%) (Auto) 12, Eosinophils (%) (Auto) 10, Basophils (%) (Auto) 1, Neutrophils # (Auto) 2.5, Lymphocytes # (Auto) 2.0, Monocytes # (Auto) 0.7, Eosinophils # (Auto) 0.6H, Basophils # (Auto) 0.1, Immature Granulocyte # (Auto) 0.0, Percent Immature Platelet Fraction 7.4, Sodium Level 141, Potassium Level 4.2, Chloride Level 110H, Carbon Dioxide Level 23, Anion Gap 8, Blood Urea Nitrogen 12, Creatinine 0.81, Estimat Glomerular Filtration Rate 102, BUN/Creatinine Ratio 15, Glucose Level 120H, Calcium Level 8.3L, Corrected Calcium 8.6, Total Bilirubin 0.5, Aspartate Amino Transf (AST/SGOT) 25, Alanine Aminotransferase (ALT/SGPT) 51, Alkaline Phosphatase 73, Total Protein 6.1L, Albumin 3.6 Radiology NAME: JOSELIN DWEITT [facility] REC#: [id number] PT STATUS: REG ER : 1960 PHYSICIAN: DANIEL KELLY MD ADMIT DATE: 11/23/22/ER Signed Date of Exam:11/23/22 CHEST 1 VIEW, AP/PA ONLY INDICATION: Chest pain. COMPARISON: 05/12/2022 TECHNIQUE: Single radiograph of the chest dated 11/23/2022. FINDINGS: The cardiac silhouette is within normal limits in size. No significant pulmonary vascular congestion. The left lung is clear. Right basilar predominantly interstitial opacities are present, slightly increased from the prior examination, particularly within the right midlung. No significant pleural effusion. No pneumothorax. No acute osseous abnormality. IMPRESSION: Mild right basilar interstitial opacities, felt to relate to mild atelectasis and/or pneumonitis. Dictated by: Dictated on workstation # [id number] Dict: 11/23/22 1118 Trans: 11/23/22 1130 [id number] Interpreted by: MALIKA RUTLEDGE MD Electronically signed by: MALIKA RUTLEDGE MD 11/23/22 1130 Assessment/Plan Assessment/Plan (1) SVT (supraventricular tachycardia) Status: Chronic Assessment & Plan: - Patient was diagnosed with SVT in April of 2022. He was told to limit caffeine and alcohol intake at this time. - TSH 1.24 - Cardiology consulted. Started him on metoprolol succinate - Smoking cessation discussed with patient and he would like nicotine patches (2) Elevated troponin I level Status: Acute Assessment & Plan: - Troponin level of .072 on admission and repeat troponin of .091 - EKG normal on admission - Cardiology consulted and they suspect an NSTEMI. Taking patient for cath today. 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 However, he said he has never had imaging done. - Consider outpatient RUQ US (5) Nicotine dependence Status: Chronic Assessment & Plan: - Patient has a 25 pack year smoking history - Currently smokes 5-6 cigarretes per day - Smoking cessation discussed with patient - Patient wants nicotine patches during hospital stay and for discharge to assist with smoking cessation Clinical Quality Measures AMI/AHF: ASA po Prior to arrival: No EVERETTE BRAN MD 11/24/22 1651: Supervisory-Addendum Brief Supervisory Addendum Verification and Attestation of Medical Student E/M Service A medical student performed and documented this service in my presence. I reviewed and verified all information documented by the medical student and made modifications to such information, when appropriate. I personally performed the physical exam and medical decision making. Everette Bran, Nov 24, 2022,16:50 A/P SVT Elevated Troponin - Cardiology consulted, appreciate recommendations, rate controlled at this time, Echo pending, Likely type 2 due to tachycardia - 11/24: Cath today, no intervention needed, will monitor ON due to SVT Elevated LFTs - Will get outpatient US, discussed importance of EtOH cessation HLD -On statin Plan to d/c tomorrow REINIER WILSON Nov 24, 2022 08:33 EVERETTE BRAN MD Nov 24, 2022 16:51
[2022-11-24] MEDS: ASPIRIN enteric coated 81MG TABLET PO SCH (09:55)
[2022-11-24] MEDS: CLOPIDOGREL 75 MG TABLET PO SCH (09:55)
[2022-11-24] MEDS ORDERED: ASPI-1238 PO (10:48)
[2022-11-24] MEDS ORDERED: ATOR20TA66 PO (10:48)
[2022-11-24] MEDS ORDERED: NITRO DRIP 25000 MCG/D5W 250 ML IV ONE (14:24)
[2022-11-24] MEDS ORDERED: MIDAZOLAM INJ 5 MG/5 ML VIAL ONE (14:24)
[2022-11-24] MEDS ORDERED: HEParin 1000 UNIT/ML (10ML VIAL) FOR BOLUS ONE (14:24)
[2022-11-24] MEDS ORDERED: fentaNYL INJECTION 100 MCG/2 ML VIAL ONE (14:24)
[2022-11-24] MEDS ORDERED: VERAPAMIL 5 MG/2 ML (CALAN) VIAL IV ONE (14:24)
[2022-11-24] MEDS ORDERED: NS IV 1000 ML 1,000 ML ONE (14:43)
--- NOTE | 2022-11-24 15:53 | Cardiac Procedure Note-CS/ASA ---
Pre-Procedure Note Pre-Op Procedure Note Date of Available H&P: Nov 23, 2022 Date H&P Reviewed: Nov 24, 2022 Time H&P Reviewed: 14:30 History & Physical: H&P Reviewed, No changes noted Moderate Sedation PreProcedure ASA Score 3 Airway Lungs Heart ASA score ASA 1: a normal healthy patient ASA 2: a patient with a mild systemic disease (mid diabetes, controlled hypertension, obesity ASA 3: a patient with a severe systemic disease that limits activity (angina, COPD, prior Myocardial infarction) ASA 4: a patient with an incapacitating disease that is a constant threat to life (CHF, renal failure) ASA 5: a moribund patient not expected to survive 24 hrs. (ruptured aneurysm) ASA 6: a declared brain- patient whose organs are being harvested. For emergent operations, add the letter E after the classification Mallampati Classification Grade 2 Sedation Plan Analgesia, Amnesia, Plan communicated to team members The patient is an appropriate candidate to undergo the planned procedure, sedation, and anesthesia. The patient immediately re-assessed prior to indication. MALENA HOPPER MD FACP FAC [facility]S Nov 24, 2022 15:53
--- NOTE | 2022-11-24 16:03 | Cardiac Cath Report ---
CARDIAC CATHETERIZATION DATE OF PROCEDURE: 11-24-22 INDICATION: Chest discomfort, elevated troponin HISTORY: The patient is a 61 year old male with palp, chest discomfort, and elevated troponin PROCEDURES PERFORMED: 1. Cor angio; 2. LHC and LV angio; 3. Aortic root angio PROCEDURE DESCRIPTION: After informed consent and in the fasting state, left heart catheterization was performed through the R radial artery utilizing a 6 Persian system by percutaneous approach. 6F [place] cath for L cor angio, 5F JR4 for left heart cath and LV angio. JR 4 did not engage RCA. Therefore, aortic root angio with 5F pigtail and R cor angio then with 5F Arnoldo right. All catheters were exchanged over a guidewire. HEMODYNAMICS: LVEDP 12 mmHg; no significant pressure gradient on pullback across the aortic valve CORONARY ANGIOGRAPHY: Left main coronary artery: Ok Left anterior descending coronary artery: Ok Left circumflex coronary artery: Codominant, Ok Right coronary artery: Codominant, Ok LV Angio: LVEF approx 60%, no wall motion abnormality seen in BROWN projection Aortic root angio: no aortic root aneurysm, aortic leaflets show good excursion, no significant AI, coronary arteries identified IMPRESSION: 1. No angiographically significant CAD 2. LVEDP 12 mmHg 3. LVEF 60% MALENA HOPPER MD FACP [facility] Nov 24, 2022 16:03
--- NOTE | 2022-11-24 16:07 | Progress Note - Cardiology ---
Cardiology SOAP Progress Note Subjective: No cp or palp or syncope today, he says No n/v/d No focal weakness Objective: I&O/Vital Signs 11/24/22 11/24/22 11/24/22 11/24/22 04:32 07:06 08:00 08:23 Temp 36.6 Pulse 62 Pulse Ox 98 97 O2 Delivery Room Air Room Air O2 Flow Rate 0.00 FiO2 21 11/24/22 11/24/22 11/24/22 11/24/22 08:30 09:32 12:24 12:30 Temp 36.7 36.3 Pulse 65 171 61 64 Resp 29 19 B/P (MAP) 121/94 (103) 129/85 (100) Pulse Ox 96 97 O2 Delivery Room Air Room Air 11/24/22 00:00 Intake Total 650 ml Output Total 325 ml Balance 325 ml Constitutional: AAO x 3, well-developed, well-nourished Respiratory: No accessory muscle use, No respiratory distress; chest expansion is symmetric, chest is bilaterally symmetric, rhonchi (scattered) Cardiovascular: regular rate-rhythm; No JVD; S1 and S2 Gastrointestional: No tender; soft, round; No guarding; audible bowel sounds Extremities: no lower extremity edema bilateral Neurologic/Psychiatric: other (moves all extremities) Skin: No rash on exposed areas, No ulcerations on exposed areas Results/Procedures: Labs Laboratory Tests 11/24/22 05:39: White Blood Count 5.8, Red Blood Count 4.35, Hemoglobin 14.9, Hematocrit 42, Mean Corpuscular Volume 97, Mean Corpuscular Hemoglobin 34, Mean Corpuscular Hemoglobin Concent 35, Red Cell Distribution Width 11.7, Platelet Count 128L, Mean Platelet Volume 11.2, Immature Granulocyte % (Auto) 0, Neutrophils (%) (Auto) 43, Lymphocytes (%) (Auto) 34, Monocytes (%) (Auto) 12, Eosinophils (%) (Auto) 10, Basophils (%) (Auto) 1, Neutrophils # (Auto) 2.5, Lymphocytes # (Auto) 2.0, Monocytes # (Auto) 0.7, Eosinophils # (Auto) 0.6H, Basophils # (Auto) 0.1, Immature Granulocyte # (Auto) 0.0, Percent Immature Platelet Fraction 7.4, Sodium Level 141, Potassium Level 4.2, Chloride Level 110H, Carbon Dioxide Level 23, Anion Gap 8, Blood Urea Nitrogen 12, Creatinine 0.81, Estimat Glomerular Filtration Rate 102, BUN/Creatinine Ratio 15, Glucose Level 120H, Calcium Level 8.3L, Corrected Calcium 8.6, Total Bilirubin 0.5, Aspartate Amino Transf (AST/SGOT) 25, Alanine Aminotransferase (ALT/SGPT) 51, Alkaline Phosphatase 73, Total Protein 6.1L, Albumin 3.6 Laboratory Tests 11/23/22 10:42 11/24/22 05:39 A/P: Assessment: SVT (seen on tele during this hosp; rates approx 170 bpm) - previously dx at time of ED visit to [facility] April 2022 Minimal troponin elevation due to tachycardia episodes (Type 2 SD). No evidence of acute coronary syndrome - Card cath of 11/24/22: No CAD seen, LVEF 60%, LVEDP 12 mmHg Mild liver enzyme elevation - undetermined etiology H/o tobacco use - cigs - cessation advised URI - management per medical services Plan: * D/c DAPT because no SD * Continue beta-kai * D/c statin because no SD * Outpt f/u advised Clinical Quality Measures AMI/AHF: ASA po Prior to arrival: MALENA Sanders MD FACP FAC [facility] Nov 24, 2022 16:07
[2022-11-24] MEDS ORDERED: METO-352 PO (16:09)
--- NOTE | 2022-11-24 16:10 | Discharge Inst-Post CATH ---
Discharge Inst-CATH/EP Post Cardiac Cath/EP D/C Inst Follow Up/Plan F/u with Dr Cevallos in 1-2 weeks No smoking ACTIVITY * Go Home directly and rest. * Limit activity of the leg (or wrist if it was used) for 7 days including aerobics, swimming, jogging, bicycling, etc. * Restrict stair-climbing for 7 days if possible, if not, climb up with your non-cath leg, then bring together on the same step. * Avoid lifting, pushing, pulling or excessive movement of the affected extremity for 7 days. * Customary sexual activity may be resumed after 2 days-use caution not to use a position that strains or causes pain to the affected extremity. * No driving for 24 hours. * NO SMOKING. * Avoid straining for bowel movements for 7 days. * Gentle walking on level ground is allowed. * Returning to work will depend on the type of procedure and the results. Your doctor will discuss this with you. CALL YOUR DOCTOR FOR ANY OF THE FOLLOWING: *If bleeding from the puncture site occurs- Apply gentle pressure to site with clean cloth and call your doctor or EMS. * If a knot or lump forms under the skin, increases in size, or causes pain. * If bruising appears to be worsening or moving further down your leg instead of disappearing. * Temperature above 101 F. CARE OF YOUR GROIN INCISION; * Bruising or purple discoloration of the skin near the puncture site is common. * You may shower only, no bathtub bathing for 5 days. Be careful to avoid slipping as your leg may feel stiff. * If a closure device was used on your femoral artery, please see the attached guide regarding care of the device and your leg. * Leave dressing on FOR 24 hours. CARE OF YOUR WRIST INCISION; * Bruising or purple discoloration of the skin near the puncture site is common. * You may shower. * DO NOT submerge wrist. * Leave dressing on FOR 24 hours. MALENA CEVALLOS MD [facility] CCDS Nov 24, 2022 16:10
[2022-11-24] MEDS ORDERED: PATIENT MAY USE OWN MEDS, ALL PO SCH (16:15)
[2022-11-24] MEDS: NS IV 1000 ML 1,000 ML IV SCH (16:42)
--- NOTE | 2022-11-24 16:48 | Discharge Summary ---
EVERETTE BRAN MD 11/24/22 1647: Diagnosis/Chief Complaint Date of Admission Nov 23, 2022 at 12:11 Date of Discharge Admission Diagnosis Admission Diagnosis See below Discharge Diagnosis see below Problems/Diagnosis: (1) SVT (supraventricular tachycardia) Assessment & Plan: - Patient was diagnosed with SVT in April of 2022. He was told to limit caffeine and alcohol intake at this time. - TSH 1.24 - Cardiology consulted. Started him on metoprolol succinate - Smoking cessation discussed with patient and he would like nicotine patches Status: Chronic (2) Elevated troponin I level Assessment & Plan: - Troponin level of .072 on admission and repeat troponin of .091 - EKG normal on admission - Cardiology consulted and they suspect an NSTEMI. Taking patient for cath today. 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 However, he said he has never had imaging done. - Consider outpatient RUQ US Status: Resolved Resolution Date/Time: 11/25/22 @ 11:18 (5) Nicotine dependence Assessment & Plan: - Patient has a 25 pack year smoking history - Currently smokes 5-6 cigarretes per day - Smoking cessation discussed with patient - Patient wants nicotine patches during hospital stay and for discharge to assist with smoking cessation Status: Chronic Chief Complaint/HPI Chief Complaint/HPI Patient is a 61-year-old male who presents to the emergency department by EMS chief complaint palpitations/SVT onset this morning. Last patient said he got into an argument with another person. On Wednesday morning, he woke up and had left scapular burning/pain. He got mad at this person again Wednesday afternoon and he again had burning/pain across is upper back. He said he was good over the weekend until last night. He said last night he had a little but of a cough and took robitussin.He subsequently had quite a bit of discomfort in his back and also described muscle weakness. He decided to go to [facility] this morning to get checked out. He had SVT at the clinic and vagal maneuvers were done there which resolved his SVT back down to a heart rate in the 70s. Just prior to arrival in the ambulance he went back up and SVT in the 160s. HR spontaneously resolved without intervention prior to presenting to ED. Patient states that in April he had a heart attack. On review of records he presented to the ED and was diagnosed with supraventricular tachycardia and transaminitis. At this time they told him to limit alcohol and caffiene intake and follow with his doctor for the transaminits. Denies chest pain, headache, vision changes, congestion, shortness of breath, abdominal pain, fever, dysuria, constipation, diarrhea, hematochezia, or sick contacts. Endorses cough for the last couple of days and night sweats. Discharge Summary-Simple/Stand Consultations Discharge Physical Examination Allergies: Coded Allergies: No Known Drug Allergies (Unverified , 05/12/22) Vitals & I&Os Vital Sign - Last 12Hours Date Time Temp Pulse Resp B/P (MAP) Pulse Ox O2 Delivery O2 Flow Rate FiO2 11/24/22 16:40 36.0 61 14 114/55 (74) 96 Room Air 11/24/22 08:23 0.00 21 Intake and Output 11/24/22 00:00 Intake Total 650 ml Output Total 325 ml Balance 325 ml Hospital Course See final discharge diagnosis. Radiology Reviewed NAME: JOSELIN DEWITT [facility] REC#: [id number] PT STATUS: REG ER : 1960 PHYSICIAN: DANIEL KELLY MD ADMIT DATE: 11/23/22/ER Signed Date of Exam:11/23/22 CHEST 1 VIEW, AP/PA ONLY INDICATION: Chest pain. COMPARISON: 05/12/2022 TECHNIQUE: Single radiograph of the chest dated 11/23/2022. FINDINGS: The cardiac silhouette is within normal limits in size. No significant pulmonary vascular congestion. The left lung is clear. Right basilar predominantly interstitial opacities are present, slightly increased from the prior examination, particularly within the right midlung. No significant pleural effusion. No pneumothorax. No acute osseous abnormality. IMPRESSION: Mild right basilar interstitial opacities, felt to relate to mild atelectasis and/or pneumonitis. Dictated by: Dictated on workstation # [id number] Dict: 11/23/22 1118 Trans: 11/23/22 1130 [id number] Interpreted by: MALIKA RUTLEDGE MD Electronically signed by: MALIKA RUTLEDGE MD 11/23/22 1130 Discharge Instructions to patient/family Please see electronic discharge instructions given to patient. Discharge Medications Reviewed and agree with Discharge Medication list on patient's Discharge Instruction sheet Clinical Quality Measures AMI/AHF: ASA po Prior to arrival: No ,12/11/22 0803: Discharge Summary-Simple/Stand Discharge Physical Examination Allergies: Coded Allergies: No Known Drug Allergies (Unverified , 05/12/22) EVERETTE BRAN MD Nov 24, 2022 16:47 ,MarDec 11, 2022 08:03
[2022-11-25] VITALS: BP 118/70
[2022-11-25 04:00] VITALS: BP 121/78
[2022-11-25 05:25] LABS: ALBUMIN 3.6 GM/DL (3.2-4.5); POTASSIUM 4.2 MMOL/L (3.6-5.0)
[2022-11-25 05:26] LABS: CALCIUM 8.7 MG/DL (8.5-10.1)
[2022-11-25 05:28] LABS: TOTAL PROTEIN 6.2 GM/DL (6.4-8.2)
[2022-11-25 05:30] LABS: BILIRUBIN,TOTAL 0.4 MG/DL (0.1-1.0)
[2022-11-25 05:31] LABS: CREATININE SERUM 0.82 MG/DL (0.60-1.30)
[2022-11-25] MEDS: NS IV 1000 ML 1,000 ML IV SCH (06:58)
[2022-11-25] MEDS: RT-ALBUTEROL SULF 2.5 MG/3 ML PRE-MIX VIAL INH SCH (07:14)
[2022-11-25] MEDS: CLOPIDOGREL 75 MG TABLET PO SCH (08:55)
[2022-11-25] MEDS: ASPIRIN enteric coated 81MG TABLET PO SCH (08:55)
[2022-11-25 08:56] VITALS: BP 131/83
[2022-11-25] MEDS ORDERED: METO-352 PO (09:31)
--- NOTE | 2022-11-25 11:13 | Discharge Summary ---
REINIER WILSON 11/25/22 1113: Diagnosis/Chief Complaint Date of Admission Nov 23, 2022 at 12:11 Date of Discharge Admission Diagnosis Admission Diagnosis Supraventricular tachycardia and chest pain Discharge Diagnosis Supraventricular tachycardia Problems/Diagnosis: (1) SVT (supraventricular tachycardia) Assessment & Plan: - Patient was diagnosed with SVT in April of 2022. He was told to limit caffeine and alcohol intake at this time. - Cardiology recommended discharge with metoprolol succinate 50mg PO BID - Smoking cessation discussed with patient. Discharge patient with 14mg nicotine patches. Status: Chronic (2) Elevated troponin I level Assessment & Plan: - Troponin level of .072 on admission and repeat troponin of .091 - EKG normal on admission - Heart cath was normal. No occlusions noted. Status: Acute (3) HLD (hyperlipidemia) Assessment & Plan: - Continue Atorvastatin Qualifiers: Qualified Codes: E78.5 - Hyperlipidemia, unspecified Status: Chronic (4) Nicotine dependence Assessment & Plan: - Patient has a 25 pack year smoking history - Currently smokes 5-6 cigarretes per day - Discharge with 14mg nicotine patches Status: Chronic (5) Transaminitis Status: Resolved Resolution Date/Time: 11/25/22 @ 11:18 Chief Complaint/HPI Chief Complaint/HPI Patient is a 61-year-old male who presents to the emergency department by EMS chief complaint palpitations/SVT onset this morning. Last patient said he got into an argument with another person. On Wednesday morning, he woke up and had left scapular burning/pain. He got mad at this person again Wednesday afternoon and he again had burning/pain across is upper back. He said he was good over the weekend until last night. He said last night he had a little but of a cough and took robitussin.He subsequently had quite a bit of discomfort in his back and also described muscle weakness. He decided to go to [facility] this morning to get checked out. He had SVT at the clinic and vagal maneuvers were done there which resolved his SVT back down to a heart rate in the 70s. Just prior to arrival in the ambulance he went back up and SVT in the 160s. HR spontaneously resolved without intervention prior to presenting to ED. Patient states that in April he had a heart attack. On review of records he presented to the ED and was diagnosed with supraventricular tachycardia and transaminitis. At this time they told him to limit alcohol and caffiene intake and follow with his doctor for the transaminits. Denies chest pain, headache, vision changes, congestion, shortness of breath, abdominal pain, fever, dysuria, constipation, diarrhea, hematochezia, or sick contacts. Endorses cough for the last couple of days and night sweats. Discharge Summary-Simple/Stand Procedures Cardiac catheterization was normal Consultations Cardiology Discharge Physical Examination Allergies: Coded Allergies: No Known Drug Allergies (Unverified , 05/12/22) Vitals & I&Os Vital Sign - Last 12Hours Date Time Temp Pulse Resp B/P (MAP) Pulse Ox O2 Delivery O2 Flow Rate FiO2 11/25/22 09:00 97 11/25/22 08:56 36.1 20 131/83 (99) 97 Room Air 11/25/22 07:14 0.00 21 Intake and Output 11/25/22 00:00 Intake Total 710 ml Output Total 650 ml Balance 60 ml General Appearance: Alert, Oriented X3, Cooperative, No Acute Distress HEENT: Atraumatic Respiratory: Clear to Auscultation, Normal Air Movement Cardiovascular: Regular Rate, Normal S1, Normal S2, No Murmurs Abdominal: Normal Bowel Sounds, Soft, No Tenderness, No Hepatosplenomegaly, No Masses Extremities: No Clubbing, No Cyanosis, No Edema, Normal Pulses, No Tenderness/Swelling Skin: Other (Right inguinal wart) Neuro: Normal Gait, Normal Speech, Strength at 5/5 X4 Ext, Sensation Intact Psych/Mental Status: Mental Status NL, Mood NL Hospital Course Was the Problem List Reviewed?: Yes Refer to problem list Labs Laboratory Tests 11/25/22 04:54: Sodium Level 139, Potassium Level 4.2, Chloride Level 107, Carbon Dioxide Level 23, Anion Gap 9, Blood Urea Nitrogen 12, Creatinine 0.82, Estimat Glomerular Filtration Rate 101, BUN/Creatinine Ratio 15, Glucose Level 173H, Calcium Level 8.7, Corrected Calcium 9.0, Total Bilirubin 0.4, Aspartate Amino Transf (AST/SGOT) 23, Alanine Aminotransferase (ALT/SGPT) 45, Alkaline Phosphatase 91, Total Protein 6.2L, Albumin 3.6 Radiology Reviewed NAME: JOSELIN DEWITT [facility] REC#: [id number] PT STATUS: REG ER : 1960 PHYSICIAN: DANIEL KELLY MD ADMIT DATE: 11/23/22/ER Signed Date of Exam:11/23/22 CHEST 1 VIEW, AP/PA ONLY INDICATION: Chest pain. COMPARISON: 05/12/2022 TECHNIQUE: Single radiograph of the chest dated 11/23/2022. FINDINGS: The cardiac silhouette is within normal limits in size. No significant pulmonary vascular congestion. The left lung is clear. Right basilar predominantly interstitial opacities are present, slightly increased from the prior examination, particularly within the right midlung. No significant pleural effusion. No pneumothorax. No acute osseous abnormality. IMPRESSION: Mild right basilar interstitial opacities, felt to relate to mild atelectasis and/or pneumonitis. Dictated by: Dictated on workstation # [id number] Dict: 11/23/22 1118 Trans: 11/23/22 1130 [id number] Interpreted by: MALIKA RUTLEDGE MD Electronically signed by: MALIKA RUTLEDGE MD 11/23/22 1130 Discharge Instructions to patient/family Follow-up with Dr. Cevallos in 1-2 weeks. This is the heart doctor. For your supraventricular tachycardia you are discharged with metoprolol 50mg twice daily. Do not take the 2nd pill if your heart rate drops below 60. Continue taking Atorvastatin. Use nicotine patches as needed. Follow-up with your PCP for smoking cessation. Discharge Medications Reviewed and agree with Discharge Medication list on patient's Discharge Instruction sheet Clinical Quality Measures AMI/AHF: ASA po Prior to arrival: No EVERETTE BRAN MD 12/10/22 1747: Discharge Summary-Simple/Stand Discharge Physical Examination Allergies: Coded Allergies: No Known Drug Allergies (Unverified , 05/12/22) Supervisory-Addendum Brief Supervisory Addendum Verification and Attestation of Medical Student E/M Service A medical student performed and documented this service in my presence. I revi ewed and verified all information documented by the medical student and made modifications to such information, when appropriate. I personally performed the physical exam and medical decision making. Everette Bran, Dec 10, 2022,17:47 REINIER WILSON Nov 25, 2022 11:13 EVERETTE BRAN MD Dec 10, 2022 17:47
--- NOTE | 2022-11-25 12:51 | Progress Note - Cardiology ---
Cardiology SOAP Progress Note Subjective: No cp or palp or syncope or shortness of breath No n/v/d No wrist, arm, or hand discomfort/discoloration Wishes to go home Refuses to stay in the hosp any longer Objective: I&O/Vital Signs 11/25/22 11/25/22 11/25/22 11/25/22 01:00 01:23 04:00 04:00 Temp 36.0 Pulse 64 141 52 Resp 14 B/P (MAP) 121/78 (92) Pulse Ox 96 O2 Delivery Room Air 11/25/22 11/25/22 11/25/22 11/25/22 06:52 07:14 08:00 08:27 Pulse 57 174 Pulse Ox 97 97 O2 Delivery Room Air Room Air O2 Flow Rate 0.00 FiO2 21 11/25/22 11/25/22 08:56 09:00 Temp 36.1 Pulse 65 97 Resp 20 B/P (MAP) 131/83 (99) Pulse Ox 97 O2 Delivery Room Air 11/25/22 00:00 Intake Total 710 ml Output Total 650 ml Balance 60 ml Constitutional: AAO x 3, well-developed, well-nourished Respiratory: No accessory muscle use, No respiratory distress; chest expansion is symmetric, chest is bilaterally symmetric, rhonchi (scattered) Cardiovascular: regular rate-rhythm; No JVD; S1 and S2 Gastrointestional: No tender; soft, round; No guarding; audible bowel sounds Extremities: no lower extremity edema bilateral Neurologic/Psychiatric: other (moves all extremities) Skin: No rash on exposed areas, No ulcerations on exposed areas Results/Procedures: Labs Laboratory Tests 11/25/22 04:54: Sodium Level 139, Potassium Level 4.2, Chloride Level 107, Carbon Dioxide Level 23, Anion Gap 9, Blood Urea Nitrogen 12, Creatinine 0.82, Estimat Glomerular Filtration Rate 101, BUN/Creatinine Ratio 15, Glucose Level 173H, Calcium Level 8.7, Corrected Calcium 9.0, Total Bilirubin 0.4, Aspartate Amino Transf (AST/SGOT) 23, Alanine Aminotransferase (ALT/SGPT) 45, Alkaline Phosphatase 91, Total Protein 6.2L, Albumin 3.6 A/P: Assessment: SVT (seen on tele during this hosp; rates approx 170 bpm) - previously dx at time of ED visit to [facility] April 2022 - has continued to have brief episodes of SVT during this hosp Minimal troponin elevation due to tachycardia episodes (Type 2 MD). No evidence of acute coronary syndrome - Card cath of 11/24/22: No CAD seen, LVEF 60%, LVEDP 12 mmHg - Echo on 11/24/22: LVEF 50-55%, mild MR, PASP 25-30 mmHg Mild liver enzyme elevation - undetermined etiology H/o tobacco use - cigs - cessation advised URI - management per medical services Plan: * D/c DAPT because no MD * D/c statin because no MD * Increase beta-kai because of continuing brief episodes of SVT. Ablation advised. Discussed states will consider * Discussed his case with Dr Godwin * Outpt f/u advised Clinical Quality Measures AMI/AHF: ASA po Prior to arrival: MALENA Sanders MD FACP FAC CCDS Nov 25, 2022 12:51
== END 2022-11-25 10:40 | disposition home or self-care (01) ==
LOC: EDUNIT# 10:30 → ER 10:31 → CSD 12:11 → UNDOADMOB 12:11 → CSD 12:20 → UNDODISOB 11-25 10:40
PROVIDERS: ADMIT Family Medicine; ATTEND Family Medicine
DX: I47.1 Supraventricular tachycardia (principal); E78.5 Hyperlipidemia, unspecified; J06.9 Acute upper respiratory infection, unspecified; R77.8 Other specified abnormalities of plasma proteins; R74.01 Elevation of levels of liver transaminase levels; F17.210 Nicotine dependence, cigarettes, uncomplicated
CPT/HCPCS: 71045; 80053 ×3; 83735; 84443; 84484; 85025 ×2; 85610; 85730; 93005 ×2; 93041; 93458; 93567; 94640 ×3; 96361 ×2; 99284; C1769; C1894; C8929; G0378; 36415; 93306

== ENCOUNTER 2023-01-26 00:25 | Inpatient (IN) | payer SELFPAY ==
[~2023-01-26] VITALS: Ht 177.8 cm; Wt 88.0 kg
[~2023-01-26 00:25] MED LIST: ASPI-1238 PO; ATOR20TA66 PO; METO-352 PO
[2023-01-26 00:43] LABS: BASOPHILS % (AUTO) 1 % (0-10); EOSINOPHILS # (AUTO) 0.4 10^3/uL (0.0-0.3); EOSINOPHILS % (AUTO) 5 % (0-10); HEMATOCRIT 49 % (40-54); LYMPHOCYTES # (AUTO) 4.3 10^3/uL (1.0-4.0); LYMPHOCYTES % (AUTO) 52 % (12-44); MEAN CORPUSCULAR HEMOGLOBIN 34 pg (25-34); MEAN CORPUSCULAR HGB CONC 35 g/dL (32-36); MEAN CORPUSCULAR VOLUME 98 fL (80-99); MEAN PLATELET VOLUME 10.9 fL (9.0-12.2); MONOCYTES # (AUTO) 0.6 10^3/uL (0.0-1.0); MONOCYTES % (AUTO) 8 % (0-12); NEUTROPHILS # (AUTO) 2.9 10^3/uL (1.8-7.8); NEUTROPHILS % (AUTO) 35 % (42-75); PLATELET COUNT 162 10^3/uL (130-400); WHITE BLOOD COUNT 8.2 10^3/uL (4.3-11.0)
[2023-01-26] MEDS ORDERED: ASPIRIN 81 MG CHEWABLE TABLET PO ONE (00:45)
[2023-01-26] MEDS ORDERED: NS IV 1000 ML 1,000 ML IV SCH ×2 (00:45→02:30)
[2023-01-26] MEDS ORDERED: ADENOSINE INJECTION 6 MG/2 ML VIAL IV ONE ×7 (00:45→04:30)
[2023-01-26] MEDS ORDERED: ENOXAPARIN 100 MG/1 ML SYRINGE SC ONE (00:45)
[2023-01-26 00:55] LABS: ALBUMIN 4.4 GM/DL (3.2-4.5); CHLORIDE 104 MMOL/L (98-107); POTASSIUM 4.1 MMOL/L (3.6-5.0); SODIUM 142 MMOL/L (135-145)
[2023-01-26 00:56] LABS: CALCIUM 9.1 MG/DL (8.5-10.1); PARTIAL THROMBOPLASTIN TIME 35 SEC (24-35); PROTHROMBIN TIME PATIENT 13.7 SEC (12.2-14.7)
[2023-01-26 00:57] LABS: AMYLASE 101 U/L (25-125); GLUCOSE 151 MG/DL (70-105); TOTAL PROTEIN 7.8 GM/DL (6.4-8.2)
[2023-01-26 00:58] LABS: CARBON DIOXIDE 25 MMOL/L (21-32)
[2023-01-26 00:59] LABS: BILIRUBIN,TOTAL 0.7 MG/DL (0.1-1.0)
[2023-01-26 01:01] LABS: ALKALINE PHOSPHATASE 107 U/L (40-136); CREATININE SERUM 1.24 MG/DL (0.60-1.30); GFR ESTIMATED 67
[2023-01-26 01:02] LABS: BUN/CREATININE RATIO 9; FIBRIN DEGRADATION PRODUCTS < 0.27 UG/ML (0.00-0.49)
[2023-01-26 01:04] LABS: ALANINE AMINOTRANSFERASE 111 U/L (0-55)
[2023-01-26 01:05] LABS: MAGNESIUM 2.1 MG/DL (1.6-2.4)
[2023-01-26 01:06] LABS: CREATINE KINASE 174 U/L (30-200); LIPASE 257 U/L (8-78)
[2023-01-26 01:13] LABS: CREATINE KINASE MB 4.7 NG/ML (<6.6)
[2023-01-26 01:25] LABS: TSH (THYROID ANALYZER) 3.41 UIU/ML (0.35-4.94)
--- NOTE | 2023-01-26 01:29 | ED Cardiac General ---
History of Present Illness General Chief Complaint: Cardiac/General Problems Stated Complaint: CP,HEART RACING Nursing Triage Note: pt ambulates to rm 5 with c/o chest pain x 2 days. 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 pt in SVT during triage with HR 170's-200 Source: patient (PT SPEAKS [employer]), old records History of Present Illness Date Seen by Provider: Jan 26, 2023 Time Seen by Provider: 00:32 Initial Comments PT ARRIVES VIA POV FROM HOME--DROVE HIMSELF HERE C/O CHEST PAIN FOR THE LAST 2 DAYS STATES HE HAS HAD AT LEAST 3 EPISODES OF RAPID HEART BEAT TODAY--AROUND NOON, THEN AROUND 1700, AND THEN AGAIN ABOUT AN HOUR AGO WHEN HE WAS TRYING TO LAY DOWN TO GO TO SLEEP. HE HAS HAD SWEATS WITH THESE EPISODES NO SHORTNESS OF BREATH NO DIZZINESS OR SYNCOPE NO NAUSEA/VOMITING NO SWELLING IN LEGS/FEET OR PAIN IN CALVES PT STATES HE TOOK 2 ASPIRIN EARLIER TONIGHT. PT WITH HISTORY OF HTN, HYPERLIPIDEMIA AND SVT. HE HAD A NORMAL CARDIAC CATH 11/24/[address] HOPPER. 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 Allergies and Home Medications Allergies Coded Allergies: No Known Drug Allergies (Unverified , 05/12/22) Patient Home Medication List Home Medication List Reviewed: Yes Aspirin (Aspirin EC) 81 Mg Tablet.dr, 81 MG PO HS, (Reported) Entered as Reported by: MISSAEL FARNSWORTH on 11/24/22 1048 Atorvastatin Calcium (Atorvastatin Calcium) 20 Mg Tablet, 20 MG PO HS, (Reported) Entered as Reported by: MISSAEL FARNSWORTH on 11/24/22 1048 Metoprolol Succinate (Toprol Xl) 50 Mg Tab.er.24h, 50 MG PO BID Prescribed by: PADMINI LUU on 11/25/22 0931 Review of Systems Review of Systems Constitutional: see HPI, diaphoresis EENTM: No Symptoms Reported Respiratory: No Symptoms Reported Cardiovascular: See HPI, Chest Pain; Denies Edema; Irregular Heart Rate; Denies Lightheadedness; Palpitations; Denies Syncope Gastrointestinal: No Symptoms Reported Genitourinary: No Symptoms Reported Musculoskeletal: no symptoms reported Skin: no symptoms reported Psychiatric/Neurological: No Symptoms Reported Endocrine: No Symptoms Reported Hematologic/Lymphatic: No Symptoms Reported Past Yveynoi-Wbgenz-Jwfqds Hx Patient Social History Tobacco Use?: Yes Tobacco type used: Cigarettes Smoking Status: Current Everyday Smoker Substance use?: No Alcohol Use?: Yes Alcohol type: Beer, Wine Alcohol Frequency: Daily Immunizations Up To Date Influenza Vaccine Up-to-Date: Yes; Up-to-Date First/Initial COVID19 Vaccinat: UNKNOWN Second COVID19 Vaccination Ko: UNKNOWN Third COVID19 Vaccination Date: UNKNOWN Past Medical History Surgery/Hospitalization HX: LIVER PROBLEMS Surgeries: Yes Cardiac Respiratory: No Cardiac: Yes (SVT) High Cholesterol, Hypertension Neurological: No Genitourinary: No Gastrointestinal: Yes ("LIVER PROBLEMS" ) Musculoskeletal: No Endocrine: No HEENT: No Cancer: No Psychosocial: No Integumentary: No Blood Disorders: No Family Medical History Heart Disease SOCIAL HISTORY: -SMOKES 1 PPD -ETOH--DRINKS BEER/WINE DAILY -DENIES DRUG USE PAST SURGICAL HISTORY: -CARDIAC CATH 11/24/[address] HOPPER: CORONARY ANGIOGRAPHY: Left main coronary artery: Ok Left anterior descending coronary artery: Ok Left circumflex coronary artery: Codominant, Ok Right coronary artery: Codominant, Ok LV Angio: LVEF approx 60%, no wall motion abnormality seen in BROWN projection Aortic root angio: no aortic root aneurysm, aortic leaflets show good excursion, no significant AI, coronary arteries identified IMPRESSION: 1. No angiographically significant CAD 2. LVEDP 12 mmHg 3. LVEF 60% Physical Exam Vital Signs Vital Signs - First Documented 01/26/23 01:03 Temp 37.4 Pulse 81 Resp 18 Pulse Ox 97 O2 Delivery Room Air Capillary Refill : Less Than 3 Seconds Height, Weight, BMI Height: '" Weight: lbs. oz. 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 Norm as Tested Skin: Normal Color (PT IS ), Warm/Dry Progress/Results/Core Measures Results/Orders Lab Results Laboratory Tests Test 01/26/23 00:37 01/26/23 01:08 Range/Units White Blood Count 8.2 4.3-11.0 10^3/uL Red Blood Count 4.97 4.30-5.52 10^6/uL Hemoglobin 17.0 13.3-17.7 g/dL Hematocrit 49 40-54 % Mean Corpuscular Volume 98 80-99 fL Mean Corpuscular Hemoglobin 34 25-34 pg Mean Corpuscular Hemoglobin Concent 35 32-36 g/dL Red Cell Distribution Width 11.6 10.0-14.5 % Platelet Count 162 130-400 10^3/uL Mean Platelet Volume 10.9 9.0-12.2 fL Immature Granulocyte % (Auto) 0 % Neutrophils (%) (Auto) 35 L 42-75 % Lymphocytes (%) (Auto) 52 H 12-44 % Monocytes (%) (Auto) 8 0-12 % Eosinophils (%) (Auto) 5 0-10 % Basophils (%) (Auto) 1 0-10 % Neutrophils # (Auto) 2.9 1.8-7.8 10^3/uL Lymphocytes # (Auto) 4.3 H 1.0-4.0 10^3/uL Monocytes # (Auto) 0.6 0.0-1.0 10^3/uL Eosinophils # (Auto) 0.4 H 0.0-0.3 10^3/uL Basophils # (Auto) 0.0 0.0-0.1 10^3/uL Immature Granulocyte # (Auto) 0.0 0.0-0.1 10^3/uL Prothrombin Time 13.7 12.2-14.7 SEC INR Comment 1.0 0.8-1.4 Activated Partial Thromboplast Time 35 24-35 SEC D-Dimer < 0.27 0.00-0.49 UG/ML Sodium Level 142 135-145 MMOL/L Potassium Level 4.1 3.6-5.0 MMOL/L Chloride Level 104 98-107 MMOL/L Carbon Dioxide Level 25 21-32 MMOL/L Anion Gap 13 5-14 MMOL/L Blood Urea Nitrogen 11 7-18 MG/DL Creatinine 1.24 0.60-1.30 MG/DL Estimat Glomerular Filtration Rate 67 BUN/Creatinine Ratio 9 Glucose Level 151 H 70-105 MG/DL Calcium Level 9.1 8.5-10.1 MG/DL Corrected Calcium 8.8 8.5-10.1 MG/DL Magnesium Level 2.1 1.6-2.4 MG/DL Total Bilirubin 0.7 0.1-1.0 MG/DL Aspartate Amino Transf (AST/SGOT) 83 H 5-34 U/L Alanine Aminotransferase (ALT/SGPT) 111 H 0-55 U/L Alkaline Phosphatase 107 40-136 U/L Total Creatine Kinase 174 30-200 U/L Creatine Kinase MB 4.7 <6.6 NG/ML Myoglobin 46.3 10.0-92.0 NG/ML Troponin I < 0.028 <0.028 NG/ML B-Type Natriuretic Peptide 209.8 H <100.0 PG/ML Total Protein 7.8 6.4-8.2 GM/DL Albumin 4.4 3.2-4.5 GM/DL Amylase Level 101 25-125 U/L Lipase 257 H 8-78 U/L TSH [place] Testing 3.41 0.35-4.94 UIU/ML Serum Alcohol 12 H <10 MG/DL Urine Color YELLOW Urine Clarity CLEAR Urine pH 7.0 5-9 Urine Specific [place] 1.010 L 1.016-1.022 Urine Protein NEGATIVE NEGATIVE Urine Glucose (UA) NEGATIVE NEGATIVE Urine Ketones NEGATIVE NEGATIVE Urine Nitrite NEGATIVE NEGATIVE Urine Bilirubin NEGATIVE NEGATIVE Urine Urobilinogen 0.2 < = 1.0 MG/DL Urine Leukocyte Esterase NEGATIVE NEGATIVE Urine RBC (Auto) TRACE H NEGATIVE Urine RBC NONE /HPF Urine WBC NONE /HPF Urine Crystals NONE /LPF Urine Bacteria NEGATIVE /HPF Urine Casts NONE /LPF Urine Mucus NEGATIVE /LPF Urine Culture Indicated NO Urine Opiates Screen NEGATIVE NEGATIVE Urine Oxycodone Screen NEGATIVE NEGATIVE Urine Methadone Screen NEGATIVE NEGATIVE Urine Barbiturates Screen NEGATIVE NEGATIVE Ur Tricyclic Antidepressants Screen NEGATIVE NEGATIVE Urine Phencyclidine Screen NEGATIVE NEGATIVE Urine Amphetamines Screen NEGATIVE NEGATIVE Urine Methamphetamines Screen NEGATIVE NEGATIVE Urine Benzodiazepines Screen NEGATIVE NEGATIVE Urine Cocaine Screen NEGATIVE NEGATIVE Urine Cannabinoids Screen NEGATIVE NEGATIVE My Orders Orders - PATIENCE PRINCE DO Ed Iv/Invasive Line Start (01/26/23 00:31) Ekg Tracing (01/26/23 00:31) O2 (01/26/23 00:31) Monitor-Rhythm Ecg Trace Only (01/26/23:31) Cbc And Automated Diff (01/26/23) Magnesium (01/26/23:31) Chest 1 View, Ap/Pa Only (01/26/23) Ekg Tracing (01/26/23:31) Comprehensive Metabolic Panel (01/26/23:) Myoglobin Serum (01/26/23:) Protime With Inr (01/26/23) Partial Thromboplastin Time (01/26/23) O2 (01/26/23:) Ed Iv/Invasive Line Start (01/26/23) Creatine Kinase (01/26/23) Creatine Kinase Mb (01/26/23) Lipase (01/26/23) Amylase (01/26/23:) Bnp [place] (01/26/23:) Fibrin Degradation Products (01/26/23) Troponin I Angela (01/26/23:) Aspirin Chewable Tablet (Aspirin Chewabl (01/26/23 00:45) Thyroid Analyzer (01/26/23:31) Ua Culture If Indicated (01/26/23:31) Ekg Tracing (01/26/23 00:32) Alcohol (01/26/23 00:35) Drug Screen Stat (Urine) (01/26/23 00:35) Ed Iv/Invasive Line Start (01/26/23 00:35) Ed Iv/Invasive Line Start (01/26/23 00:35) Ns Iv 1000 Ml (Ns Iv 1000 Ml) (01/26/23 00:45) Adenosine Injection (Adenosine Injection (01/26/23 00:45) Adenosine Injection (Adenosine Injection (01/26/23 00:45) Enoxaparin Injection (Enoxaparin Injecti (01/26/23 00:45) Ekg Tracing (01/26/23 00:37) Metoprolol Succinate (Xl) Tab (Metoprolo (01/26/23 01:30) Fentanyl Injection (Fentanyl Injection (01/26/23 01:30) Medications Given in ED Current Medications Medications Dose Ordered Sig/Salomon Route Start Time Stop Time Status Last Admin Dose Admin Adenosine 6 mg ONCE ONCE IV 01/26/23 00:45 01/26/23 00:46 DC 01/26/23 00:47 6 MG Aspirin 324 mg ONCE ONCE PO 01/26/23 00:45 01/26/23 00:46 DC 01/26/23 00:48 324 MG Enoxaparin Sodium 100 mg ONCE ONCE SC 01/26/23 00:45 01/26/23 00:46 DC 01/26/23 00:49 90 MG Fentanyl Citrate 50 mcg ONCE ONCE IVP 01/26/23 01:30 01/26/23 01:31 DC 01/26/23 01:33 50 MCG Vital Signs/I&O 01/26/23 01:03 Temp 37.4 Pulse 81 Resp 18 B/P (MAP) Pulse Ox 97 O2 Delivery Room Air Progress Progress Note : Progress Note VITALS ON ARRIVAL: TEMP 37.4=99.4, HR 195, RR 18, BP 106/79, O2 SAT 100% ON ROOM AIR GIVEN: -ADENOSINE 6 MG--NO RESULTS ; 12 MG--CONVERSION TO NSR WITH RATE IN 80'S -TOPROL XL -ASPIRIN -LOVENOX -FENTANYL PT IS STILL HAVING VERY FREQUENT 3-4 BEAT RUNS OF SVT, AFTER CONVERSION, WITH UNDERLYING SINUS RHYTHM. PT STILL C/O MILD CHEST PAIN EVEN AFTER CONVERSION, RATES PAIN 3/10. FENTANYL GIVEN WITH IMPROVEMENT IN CHEST PAIN LABS: -CBC NORMAL -CMP WITH GLU 151, AST 83, ALT 111, OTHERWISE NORMAL -MG NORMAL -TROPONIN NEGATIVE -BNP 209.8 -AMYLASE 101, LIPASE 257 -TSH NORMAL 3.41 -PT/PTT/INR NORMAL -D-DIMER NEGATIVE -UA CLEAR -UDS NEGATIVE -ETOH 12 EKG WITH SVT WITH RATE OF 189 ON ARRIVAL; POST CONVERSION TO NSR RATE 83 CXR UNREMARKABLE, PENDING RADIOLOGIST REVIEW NO DETERIORATION IN PT'S CONDITION DURING ER STAY VITALS STABLE SYMPTOMS MUCH IMPROVED AT TIME OF ADMIT. DISCUSSED TEST RESULTS, NEED FOR ADMIT AND PT IS AGREEABLE TO PLAN REVIEWED PRIOR RECORDS INCLUDING ER VISITS, ADMITS/H&P'S/CONSULTS/DISCHARGE SUMMARIES, TESTS/PROCEDURES. Initial ECG Impression Date: Jan 26, 2023 Initial ECG Impression Time: 00:37 Initial ECG Rate: 189 Initial ECG Rhythm: SVT Initial ECG Intervals HI--N/A QRS 109 QT/QTC 232/329 Initial ECG Impression: Nonspecific Changes Comment INTERPRETED BY ME. FIRST EKG IS SIMILAR TO PRIOR EKG WHEN PT HAS BEEN IN SVT. EKG : EKG Time: 00:45 Rate: 83 Rhythm: Normal Sinus Intervals: Normal Comment INTERPRETED BY ME REPEAT EKG WITH NSR IS SIMILAR TO PRIOR EKG'S WHEN PT HAS BEEN IN NSR IN THE PAST. Diagnostic Imaging Comments CXR--NO ACUTE PROCESS, PENDING RADIOLOGIST REVIEW Reviewed: Reviewed by Me Departure Communication (Admissions) 0050--CALLED DR. RAHMAN, [facility]PITAL[facility] FOR [facility] MESSAGE LEFT ON CELL PHONE 012--SPOKE WITH DR. RAHMAN, ACCEPTS PT FOR ADMIT 012--REPORT TO E-ICU PHYSICIAN. Impression Primary Impression: SVT (supraventricular tachycardia) Additional Impressions: Chest pain Transaminitis Nicotine dependence HLD (hyperlipidemia) Daily consumption of alcohol Elevated lipase Disposition: ADMITTED INPATIENT Condition: Improved Admissions Decision to Admit Reason: Admit from ER (General) Decision to Admit/Date: Jan 26, 2023 Time/Decision to Admit Time: 00:50 Departure-Patient Inst. Referrals: [facility] Primary Care Physician PATIENCE PRINCE DO Jan 26, 2023 01:29
[2023-01-26 01:30] LABS: AMPHETAMINE SCREEN, URINE NEGATIVE (NEGATIVE); BARBITURATE SCREEN URINE NEGATIVE (NEGATIVE); CANNABINOID SCREEN, URINE NEGATIVE (NEGATIVE); COCAINE SCREEN URINE NEGATIVE (NEGATIVE); METHADONE STAT NEGATIVE (NEGATIVE); OPIATE SCREEN URINE NEGATIVE (NEGATIVE); OXYCODONE STAT NEGATIVE (NEGATIVE); TRICYCLIC ANTIDEPRESSANTS SCRE NEGATIVE (NEGATIVE)
[2023-01-26] MEDS ORDERED: fentaNYL INJECTION 100 MCG/2 ML VIAL IVP ONE (01:30)
[2023-01-26 01:31] LABS: BACTERIA,URINE NEGATIVE /HPF; BILIRUBIN,URINE NEGATIVE (NEGATIVE); CLARITY,URINE CLEAR; COLOR,URINE YELLOW; GLUCOSE, URINE (UA) NEGATIVE (NEGATIVE); KETONES,URINE NEGATIVE (NEGATIVE); LEUKOCYTE ESTERASE ,URINE NEGATIVE (NEGATIVE); NITRITE,URINE NEGATIVE (NEGATIVE); PROTEIN,URINE NEGATIVE (NEGATIVE)
--- NOTE | 2023-01-26 01:46 | Tele-ICU Progress Note ---
Subjective Date Seen by a Provider: Jan 26, 2023 Subjective/Events-last exam This virtual visit was conducted using real time audio/video. Thank you for asking us to see this patient for critical care services due to chest pain and SVT. Normal cardiac cath 10/2022. Received adenosine x 2 and PO toprol in ER. Currently NSR. PE: VSS. 107/80 O2 sat 97% on RA. HEENT: No obvious masses, adenopathy or JVD. Chest: clear to auscultation. CV: RRR S1 S2 No murmur or added sounds. Abd: Non-tender. Bowel sounds Y. : Unremarkable. 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 No obvious focal findings. Extremities: No edema. Capillary refill < 3 seconds. Skin: unremarkable. Results: Elevated BG 151, BNP 209.8. CXR: clear. Available chart/ vitals / labs / images reviewed. Video assessment done using teleICU camera, rest of exam as per RN. A/P: Critical Care: critically ill patient. Cont. Toprol, Lovenox. Discussed with KENDY Winter and ER MD Dr. Gregorio.. Asked RN to reach out to eICU if any questions or concerns later. Time spent with patient/coordination of care with other health professionals (mins): 25 Sepsis Event Evaluation Height, Weight, BMI Height: '" Weight: lbs. oz. kg; 27.00 BMI Method: Exam Exam Patient acknowledged, consented, and participated in this virtual visit which was conducted using real time audio/video Vital Signs Date Time Temp Pulse Resp B/P (MAP) Pulse Ox O2 Delivery O2 Flow Rate FiO2 01/26/23 01:03 37.4 81 18 97 Room Air I & O 01/26/23 06:59 Intake Total 1000 ml Balance 1000 ml Height & Weight Height: '" Weight: lbs. oz. kg; 27.00 BMI Method: General Appearance: No Apparent Distress (see free text.) Capillary Refill: Less Than 3 Seconds Peripheral Pulses: 2+ Dorsalis Pedis (R), 2+ Left Dors-Pedis (L) Results Lab Laboratory Tests 01/26/23 00:37 Assessment/Plan Assessment/Plan See free text. Critical Care: Critically Ill Patient ROSA SPARKS MD Jan 26, 2023 01:46
[2023-01-26] MEDS ORDERED: ACETAMINOPHEN 500 MG TABLET PO PRN (02:30)
[2023-01-26] MEDS ORDERED: ONDANSETRON INJECTION 4 MG/2 ML (SDV) IV PRN (02:30)
[2023-01-26] MEDS ORDERED: NITROGLYCERIN 0.4 MG SL TABLETS BTL 25'S SL PRN (02:30)
[2023-01-26] MEDS ORDERED: morphine INJ 4 MG/ML 1 ML (VIAL/SYRINGE) IV PRN (02:30)
[2023-01-26] MEDS ORDERED: NS IV 1000 ML 1,000 ML ONE (02:51)
[2023-01-26] MEDS ORDERED: meTOprolol INJECTION 5 MG/5 ML VIAL IV STA (04:26)
[2023-01-26] MEDS ORDERED: meTOprolol INJECTION 5 MG/5 ML VIAL ONE (04:29)
[2023-01-26 04:48] LABS: HEMOGLOBIN 14.6 g/dL (13.3-17.7)
[2023-01-26 04:50] LABS: BASOPHILS % (AUTO) 1 % (0-10); EOSINOPHILS # (AUTO) 0.4 10^3/uL (0.0-0.3); EOSINOPHILS % (AUTO) 6 % (0-10); HEMATOCRIT 41 % (40-54); LYMPHOCYTES # (AUTO) 2.6 10^3/uL (1.0-4.0); LYMPHOCYTES % (AUTO) 42 % (12-44); MEAN CORPUSCULAR HEMOGLOBIN 35 pg (25-34); MEAN CORPUSCULAR HGB CONC 36 g/dL (32-36); MEAN CORPUSCULAR VOLUME 97 fL (80-99); MONOCYTES # (AUTO) 0.5 10^3/uL (0.0-1.0); MONOCYTES % (AUTO) 8 % (0-12); NEUTROPHILS # (AUTO) 2.7 10^3/uL (1.8-7.8); NEUTROPHILS % (AUTO) 43 % (42-75); PLATELET COUNT 125 10^3/uL (130-400); WHITE BLOOD COUNT 6.2 10^3/uL (4.3-11.0)
[2023-01-26] MEDS ORDERED: dilTIAZem INJ 25 MG/5 ML VIAL IVP STA (04:54)
[2023-01-26] MEDS ORDERED: dilTIAZem DRIP PRE-MIX 125 ML IV ONE (04:58)
[2023-01-26] MEDS ORDERED: dilTIAZem INJ 25 MG/5 ML VIAL ONE (04:58)
[2023-01-26] MEDS ORDERED: dilTIAZem DRIP PRE-MIX 125 ML IV SCH (05:00)
[2023-01-26 05:06] LABS: ALANINE AMINOTRANSFERASE 87 U/L (0-55); ALBUMIN 3.6 GM/DL (3.2-4.5); ALKALINE PHOSPHATASE 96 U/L (40-136); BILIRUBIN,TOTAL 0.5 MG/DL (0.1-1.0); BUN/CREATININE RATIO 13; CALCIUM 8.1 MG/DL (8.5-10.1); CARBON DIOXIDE 21 MMOL/L (21-32); CHLORIDE 109 MMOL/L (98-107); CHOLESTEROL 128 MG/DL (< 200); GFR ESTIMATED 98; GLUCOSE 126 MG/DL (70-105); HDL CHOLESTEROL 30 MG/DL (40-60); MAGNESIUM 1.8 MG/DL (1.6-2.4); PHOSPHORUS 3.3 MG/DL (2.3-4.7); POTASSIUM 4.1 MMOL/L (3.6-5.0); SODIUM 141 MMOL/L (135-145); TOTAL PROTEIN 6.1 GM/DL (6.4-8.2); TRIGLYCERIDES 411 MG/DL (<150)
[2023-01-26] MEDS: 1/2 NS + KCL 20 MEQ/L 1,000 ML 1,000 ML IV SCH ×2 (05:15→15:13)
[2023-01-26] MEDS ORDERED: NS IV 500 ML 500 ML IV PRN (05:45)
[2023-01-26] MEDS ORDERED: MAGNESIUM 1 GM/100 ML IVPB 100 ML IV SCH (06:00)
[2023-01-26] MEDS ORDERED: POTASSIUM CL 10MEQ/50ML IVPB 50 ML IV SCH (06:00)
[2023-01-26] MEDS ORDERED: POTASSIUM CHLORIDE 20 MEQ TABLET PO SCH (06:00)
--- NOTE | 2023-01-26 07:58 | Diagnostic Imaging Report ---
INDICATION: Chest pain Two-view chest 01/26/2023 COMPARISON: 11/23/2022 Single view chest FINDINGS: The cardiomediastinal silhouette is unremarkable. The pulmonary vasculature is within normal limits. The lungs and pleural spaces are clear. IMPRESSION: No evidence of an acute cardiopulmonary process. Dictated by: Dictated on workstation # [id number]
[2023-01-26] MEDS: ASPIRIN enteric coated 81MG TABLET PO SCH ×2 (08:10→09:49)
--- NOTE | 2023-01-26 08:14 | Consultation-Cardiology ---
HPI-Cardiology Cardiology Consultation: Date of Consultation 01/26/23 Time Seen by a Provider: 08:30 Date of Admission 01-25-23 Attending Physician [facility] Admitting Physician Admitting Physician: Devi Baum DO Attending Physician: Devi Baum DO Consulting Physician Rashard Cevallos MD HPI: Chief Complaint: SVT Chest pain Mr. Dewitt is a 62 yr old male admitted to ICU with SVT and chest discomfort. He reports he started to feel unwell a few days ago. He states he would have episodes of chest pressure with associated fast heartbeat. He repo rts feeling SOB with the episodes. He states the episodes would last for several minutes and then resolve; but they were occurring several times a day. He states he did go to [place] [employer] last evening where he had a few beers. He states the episodes of palpitations and chest pressure continuously were getting worse so he came to the ED. He reports he is currently feeling better. He reports he is only taking his cholesterol medicine and baby ASA. He was previously taking Toprol, but quit d/t running out of the medication. He denies any syncope, near syncope. No c/o LE swelling. No c/o n/v/d. No c/o fever or chills. Review of Systems-Cardiology Review of Systems Constitutional: As described under HPI; No chills, No fever Eyes: No vision change Ears/Nose/Throat: No epistaxis, No recent hearing loss Respiratory: As described under HPI Cardiovascular: As described under HPI Gastrointestinal: No constipation, No diarrhea, No nausea, No vomiting Genitourinary: No dysuria, No hematuria Musculoskeletal: no symptoms reported Skin: No rash on exposed areas, No ulcerations on exposed areas Psychiatric/Neurological: No anxiety, No depression, No seizure, No focal weakness, No syncope Hematologic: No bleeding abnormalities CAM-Oanhzy-Eiuulu Hx Patient Social History Smoking Status: Current Everyday Smoker Alcohol Use?: Yes Tobacco type used: Cigarettes Immunizations Up To Date Date of Influenza Vaccine: Jan 26, 2023 Past Medical History PMH As described under Assessment. Family Medical History Family Medical History: He believes his father may have had heart trouble, but he is unsure Allergies and Home Medications Allergies Coded Allergies: No Known Drug Allergies (Unverified , 05/12/22) Patient Home Medication List Aspirin (Aspirin EC) 81 Mg Tablet.dr, 81 MG PO HS, (Reported) Entered as Reported by: MISSAEL FARNSWORTH on 11/24/22 1048 Atorvastatin Calcium (Atorvastatin Calcium) 20 Mg Tablet, 20 MG PO HS, (Reported) Entered as Reported by: MISSAEL FARNSWORTH on 11/24/22 1048 Diltiazem HCl (Diltiazem 24Hr ER) 240 Mg Cap.er.24h, 240 MG PO DAILY Prescribed by: PADMINI LUU on 01/26/23 1452 Metoprolol Succinate (Toprol Xl) 50 Mg Tab.er.24h, 50 MG PO HS Prescribed by: PADMINI LUU on 01/26/23 1452 Discontinued Medications Metoprolol Succinate (Toprol Xl) 50 Mg Tab.er.24h, 50 MG PO BID Prescribed by: PADMINI LUU on 11/25/22 0931 Physical Exam-Cardiology Physical Exam Vital Signs/I&O 01/26/23 01/26/23 01/26/23 01/26/23 04:45 05:00 05:04 05:15 Pulse 87 86 94 67 B/P (MAP) 119/75 (86) 113/74 (89) 113/74 114/75 (87) Pulse Ox 96 97 96 O2 Delivery Room Air Room Air Room Air 01/26/23 01/26/23 01/26/23 01/26/23 05:15 05:30 05:45 06:00 Pulse 110 76 92 68 Resp 9 15 12 B/P (MAP) 113/74 97/70 (83) 111/82 (94) Pulse Ox 96 97 95 O2 Delivery Room Air Room Air Room Air 01/26/23 01/26/23 01/26/23 01/26/23 06:15 07:00 07:00 07:55 Temp 36.4 Pulse 64 70 56 Resp 16 12 B/P (MAP) 117/80 (97) 118/81 (93) Pulse Ox 95 96 O2 Delivery Room Air Room Air 01/26/23 01/26/23 01/26/23 01/26/23 08:00 08:25 09:00 10:00 Pulse 54 65 54 Resp 10 13 16 B/P (MAP) 115/77 (90) 115/83 (94) 114/90 (98) Pulse Ox 96 96 98 O2 Delivery Room Air Room Air Room Air Room Air 01/26/23 01/26/23 01/26/23 01/26/23 11:00 11:48 12:00 12:01 Temp 36.2 Pulse 54 72 Resp 10 10 B/P (MAP) 127/87 (100) 126/76 (93) Pulse Ox 97 97 O2 Delivery Room Air Room Air Room Air 01/26/23 01/26/23 01/26/23 01/26/23 13:00 13:00 14:00 15:00 Pulse 68 56 61 63 Resp 10 12 29 B/P (MAP) 87/75 (79) 134/98 (110) 116/85 (95) Pulse Ox 97 96 95 O2 Delivery Room Air Room Air Room Air 01/26/23 16:25 Temp 36.2 Pulse 63 Resp 29 B/P (MAP) 116/85 Pulse Ox 95 O2 Delivery Room Air Capillary Refill : Less Than 3 Seconds Constitutional: AAO x 3, well-developed, well-nourished HEENT: PERRL, hearing is well preserved, oral hygience is good Neck: No carotid bruit; carotid pulses are 2 + bilaterally Respiratory: No accessory muscle use, No respiratory distress; chest expansion is symmetric, chest is bilaterally symmetric, lungs clear to auscultation Cardiovascular: No JVD; S1 and S2, other (irregular) Gastrointestinal: No tender; soft, round, audible bowel sounds Extremities: no lower extremity edema bilateral Neurologic/Psychiatric: other (moves all extremities) Skin: No rash on exposed areas, No ulcerations on exposed areas Data Review Labs Laboratory Tests 01/26/23 00:37: White Blood Count 8.2, Red Blood Count 4.97, Hemoglobin 17.0, Hematocrit 49, Mean Corpuscular Volume 98, Mean Corpuscular Hemoglobin 34, Mean Corpuscular Hemoglobin Concent 35, Red Cell Distribution Width 11.6, Platelet Count 162, Mean Platelet Volume 10.9, Immature Granulocyte % (Auto) 0, Neutrophils (%) (Auto) 35L, Lymphocytes (%) (Auto) 52H, Monocytes (%) (Auto) 8, Eosinophils (%) (Auto) 5, Basophils (%) (Auto) 1, Neutrophils # (Auto) 2.9, Lymphocytes # (Auto) 4.3H, Monocytes # (Auto) 0.6, Eosinophils # (Auto) 0.4H, Basophils # (Auto) 0.0, Immature Granulocyte # (Auto) 0.0, Prothrombin Time 13.7, INR Comment 1.0, Activated Partial Thromboplast Time 35, D-Dimer < 0.27, Sodium Level 142, Potassium Level 4.1, Chloride Level 104, Carbon Dioxide Level 25, Anion Gap 13, Blood Urea Nitrogen 11, Creatinine 1.24, Estimat Glomerular Filtration Rate 67, BUN/Creatinine Ratio 9, Glucose Level 151H, Calcium Level 9.1, Corrected Calcium 8.8, Magnesium Level 2.1, Total Bilirubin 0.7, Aspartate Amino Transf (AST/SGOT) 83H, Alanine Aminotransferase (ALT/SGPT) 111H, Alkaline Phosphatase 107, Total Creatine Kinase 174, Creatine Kinase MB 4.7, Myoglobin 46.3, Troponin I < 0.028, B-Type Natriuretic Peptide 209.8H, Total Protein 7.8, Albumin 4.4, Amylase Level 101, Lipase 257H, TSH [place] Testing 3.41, Serum Alcohol 12H 01/26/23 01:08: Urine Color YELLOW, Urine Clarity CLEAR, Urine pH 7.0, Urine Specific [place] 1.010L, Urine Protein NEGATIVE, Urine Glucose (UA) NEGATIVE, Urine Ketones NEGATIVE, Urine Nitrite NEGATIVE, Urine Bilirubin NEGATIVE, Urine Urobilinogen 0.2, Urine Leukocyte Esterase NEGATIVE, Urine RBC (Auto) TRACEH, Urine RBC NONE, Urine WBC NONE, Urine Crystals NONE, Urine Bacteria NEGATIVE, Urine Casts NONE, Urine Mucus NEGATIVE, Urine Culture Indicated NO, Urine Opiates Screen NEGATIVE, Urine Oxycodone Screen NEGATIVE, Urine Methadone Screen NEGATIVE, Urine Barbiturates Screen NEGATIVE, Ur Tricyclic Antidepressants Screen NEGATIVE, Urine Phencyclidine Screen NEGATIVE, Urine Amphetamines Screen NEGATIVE, Urine M ethamphetamines Screen NEGATIVE, Urine Benzodiazepines Screen NEGATIVE, Urine Cocaine Screen NEGATIVE, Urine Cannabinoids Screen NEGATIVE 01/26/23 03:47: White Blood Count 6.2, Red Blood Count 4.21L, Hemoglobin 14.6, Hematocrit 41, Mean Corpuscular Volume 97, Mean Corpuscular Hemoglobin 35H, Mean Corpuscular Hemoglobin Concent 36, Red Cell Distribution Width 11.3, Platelet Count 125L, Mean Platelet Volume 12.0, Immature Granulocyte % (Auto) 0, Neutrophils (%) (Auto) 43, Lymphocytes (%) (Auto) 42, Monocytes (%) (Auto) 8, Eosinophils (%) (Auto) 6, Basophils (%) (Auto) 1, Neutrophils # (Auto) 2.7, Lymphocytes # (Auto) 2.6, Monocytes # (Auto) 0.5, Eosinophils # (Auto) 0.4H, Basophils # (Auto) 0.0, Immature Granulocyte # (Auto) 0.0, Sodium Level 141, Potassium Level 4.1, Ch loride Level 109H, Carbon Dioxide Level 21, Anion Gap 11, Blood Urea Nitrogen 12, Creatinine 0.90, Estimat Glomerular Filtration Rate 98, BUN/Creatinine Ratio 13, Glucose Level 126H, Calcium Level 8.1L, Corrected Calcium 8.4L, Magnesium Level 1.8, Total Bilirubin 0.5, Aspartate Amino Transf (AST/SGOT) 56H, Alanine Aminotransferase (ALT/SGPT) 87H, Alkaline Phosphatase 96, Troponin I < 0.028, Total Protein 6.1L, Albumin 3.6, Percent Immature Platelet Fraction 8.7H, Phosphorus Level 3.3, Triglycerides Level 411H, Cholesterol Level 128, LDL Cholesterol Direct 60, VLDL Cholesterol , HDL Cholesterol 30L 01/26/23 06:35: Troponin I < 0.028 Radiology NAME: JOSELIN [facility] REC#: [id number] PT STATUS: ADM IN : 1960 PHYSICIAN: PATIENCE PRINCE DO ADMIT DATE: 01/26/23/ICU Draft Date of Exam:01/26/23 CHEST 1 VIEW, AP/PA ONLY INDICATION: Chest pain Two-view chest 01/26/2023 COMPARISON: 11/23/2022 Single view chest FINDINGS: The cardiomediastinal silhouette is unremarkable. The pulmonary vasculature is within normal limits. The lungs and pleural spaces are clear. IMPRESSION: No evidence of an acute cardiopulmonary process. Dictated on workstation # [id number] Dict: 01/26/23 0755 Trans: 01/26/23 0757 [facility] [id number] Interpreted by: MIREILLE ACOSTA MD Electronically signed by: ECG Impression ECG Initial ECG Rhythm: SVT A/P-Cardiology Assessment/Admission Diagnosis SVT - previously dx at time of ED visit to [facility] April 2022 - has refused EP referral for consideration of ablation - desired conservative tx only (per office note of 12-03-22) - converted to SR following 12mg of Adenosine in the ED - continued to have episodes of break-through SVT overnight Chest pain (associated with episodes of SVT) - Card cath of 11/24/22: No CAD seen, LVEF 60%, LVEDP 12 mmHg - Echo on 11/24/22: LVEF 50-55%, mild MR, PASP 25-30 mmHg Liver enzyme elevation - undetermined etiology - management per medical services H/o tobacco use - cigs - cessation advised ETOH Discussion and Recomendations Recurrent SVT with chest discomfort associated with episodes of rapid heartbeat - no evidence of ACS (see previous cardiac work up) - currently on Cardizem gtt - change to oral - received oral Toprol XL at 1:30 this morning - HR improved - again advise EP consult for consideration of SVT ablation as out pt Liver enzyme elevation - improving Advised smoking cessation Advised ETOH cessation Monitor lab Replace electrolytes Further recs will be based on his hospital course We would like to thank medical services for this consult PADMINI LUU Jan 26, 2023 08:14
[2023-01-26] MEDS ORDERED: dilTIAZem ER 240 MG CAPSULE PO SCH (09:00)
--- NOTE | 2023-01-26 10:09 | History & Physical-Hospitalist ---
BUCK SERRANO 01/26/23 1009: History of Present Illness HPI/Chief Complaint Carlitos is a 62 year old male is a current 1ppd tobacco user that presented himself to the ED on 01/26 at 0030 for 2 days of chest pain and 3 episodes of rapid heart beat. Pt only took two aspirin prior to the ED. In the ED a CXR and EKG were performed and labs were gathered. The CXR found no evidence of an acute cardiopulmonary process. Cardiology was consulted and Dr. Cevallos saw the pt. Dr. Cevallos dx the pt with SVT and noted that the pt refused EP referral for consideration of ablation due to the pt only wanting conservative tx. In regards to the CP, they found Card cath of 11/24/22: No CAD seen, LVEF 60%, LVEDP 12 mmHg. Echo on 11/24/22: LVEF 50-55%, mild MR, PASP 25-[address] Cevallos again advised EP consult for consideration of SVT ablation as outpatient. He was admitted to the ICU for SVT and CP. Currently the pt reports no CP. He states that after taking the medications in the ICU he has felt a lot better. He denies any palpitations, SOB, or LAL. Source: patient Date Seen 01/26/23 Time Seen by a Provider: 09:10 Attending Physician [place] PCP Admitting Physician: Devi Rahman DO Attending Physician: Devi Rahman DO Referring Physician Date of Admission Jan 26, 2023 at 01:30 Home Medications & Allergies Home Medications Reviewed patient Home Medication Reconciliation performed by pharmacy medication reconciliations driver license technician and/or nursing. Patients Allergies have been reviewed. Allergies Allergies Coded Allergies No Known Drug Allergies (Unverified05/12/22) Past Aaqjsnh-Jaidxt-Osdlzu Hx Patient Social History Tobacco Use?: Yes Tobacco type used: Cigarettes Smoking Status: Current Everyday Smoker Substance use?: No Alcohol Use?: Yes Alcohol type: Beer, Wine Alcohol Frequency: Daily Immunizations Up To Date Date of Influenza Vaccine: Jan 26, 2023 First/Initial COVID19 Vaccinat: UNKNOWN Second COVID19 Vaccination Ko: UNKNOWN Tetanus Booster (TDap): More Than 5 Years Hepatitis A: No Hepatitis B: No Current Status Advance Directives: No Communicates: Verbally Primary Language: Bulgarian Preferred Spoken Language: Bulgarian Is interpretation needed?: No Past Medical History Surgeries: Cardiac High Cholesterol, Hypertension Blood Disorders: No HLD NAFLD Family Medical History Heart Disease SOCIAL HISTORY: -SMOKES 1 PPD -ETOH--DRINKS BEER/WINE DAILY -DENIES DRUG USE PAST SURGICAL HISTORY: -CARDIAC CATH 11/24/[address] CEVALLOS: CORONARY ANGIOGRAPHY: Left main coronary artery: Ok Left anterior descending coronary artery: Ok Left circumflex coronary artery: Codominant, Ok Right coronary artery: Codominant, Ok LV Angio: LVEF approx 60%, no wall motion abnormality seen in BROWN projection Aortic root angio: no aortic root aneurysm, aortic leaflets show good excursion, no significant AI, coronary arteries identified IMPRESSION: 1. No angiographically significant CAD 2. LVEDP 12 mmHg 3. LVEF 60% Review of Systems Constitutional: No chills, No fever, No weakness EENTM: No ear pain, No eye pain, No vision loss, No hoarseness Respiratory: No cough, No short of breath Cardiovascular: No chest pain, No palpitations Gastrointestinal: No abdominal pain Psychiatric/Neurological: Denies Headache, Denies Numbness, Denies Tingling Physical Exam Physical Exam Vital Signs Vital Signs - First Documented 01/26/23 01/26/23 01:03 01:50 Temp 37.4 Pulse 81 Resp 18 B/P (MAP) 106/79 Pulse Ox 97 O2 Delivery Room Air Capillary Refill : Less Than 3 Seconds Height, Weight, BMI Height: '" Weight: lbs. oz. kg; 27.83 BMI Method: General Appearance: No Apparent Distress Eyes: Bilateral Eye PERRL, Bilateral Eye EOMI HEENT: No Photophobia, No Scleral Icterus (L), No Scleral Icterus (R) Neck: Normal Inspection, Non Tender Cardiovascular: No Murmur, Normal Peripheral Pulses; No Bradycardia, No Tachycardia Gastrointestinal: Normal Bowel Sounds, Non Tender, Soft; No Distended, No Guarding, No Rebound Extremity: Normal Capillary Refill, No Calf Tenderness Neurologic/Psychiatric: Alert, Oriented x3, No Motor/Sensory Deficits, Normal Mood/Affect, cupola melter helper II-XII Norm as Tested Results Results/Procedures Labs Laboratory Tests 01/26/23 00:37 01/26/23 03:47 Patient resulted labs reviewed. Assessment/Plan Assessment and Plan Assessment: SVT CP Liver Enzyme Elevation Plan: SVT -continue diltiazem and metoprolol -will consult with cardiology to determine treatment plan going forward and dis charge plans CP -resolved Liver Enzyme Elevation -AST has decreased to 56 from 83. ALT has decreased to 87 from 111. DEVI RAHMAN DO 01/27/23 0433: History of Present Illness HPI/Chief Complaint Chief complaint: Recurrent SVT with noncompliance HPI: This is a 62-year-old male who has a history of SVT who had recurrent episodes of SVT admitted to the ICU with cardiology consult. Patient has declined an ablation in the past. He is also been noncompliant with metoprolol. He will discharge home on metoprolol twice daily and stressed compliance. Source: patient Exam Limitations: no limitations Past Jsykmln-Ddaool-Hwjdzf Hx Patient Social History Marrital Status: single Employed/Student: unemployed Review of Systems Constitutional: see HPI Cardiovascular: palpitations Physical Exam Physical Exam General Appearance: No Apparent Distress Eyes: Right Eye Normal Inspection, Right Eye PERRL HEENT: PERRL/EOMI, TMs Normal, Normal ENT Inspection, Pharynx Normal, Moist Mucous Membranes Neck: Full Range of Motion, Normal Inspection, Non Tender Respiratory: Chest Non Tender, Lungs Clear, Normal Breath Sounds, No Accessory Muscle Use, No Respiratory Distress Cardiovascular: Regular Rate, Rhythm, No Edema, No Gallop, No JVD, No Murmur, Normal Peripheral Pulses Gastrointestinal: Normal Bowel Sounds, No Organomegaly, No Pulsatile Mass, Non Tender, Soft Back: Normal Inspection, No CVA Tenderness, No Vertebral Tenderness Extremity: Normal Capillary Refill, Normal Inspection, Normal Range of Motion, Non Tender, No Calf Tenderness, No Pedal Edema Neurologic/Psychiatric: Alert, Oriented x3, No Motor/Sensory Deficits, Normal Mood/Affect Skin: Normal Color, Warm/Dry Lymphatic: No Adenopathy Assessment/Plan Admission Diagnosis Assessment: Recurrent SVT Noncompliance with medications Smoker Plan: Discharge home Admission Status: Observation Supervisory-Addendum Brief Verification & Attestation Participated in pt care: history, MDM, physical Personally performed: exam, history, MDM, supervision of care Care discussed with: Medical Student Procedures: n/a Results interpretation: Verified all documentation Verification and Attestation of Medical Student E/M Service A medical student performed and documented this service in my presence. I reviewed and verified all information documented by the medical student and made modifications to such information, when appropriate. I personally performed the physical exam and medical decision making. Devi Rahman, Jan 27, 2023,04:33 BUCK SERRANO Jan 26, 2023 10:09 DEVI RAHMAN DO Jan 27, 2023 04:33
[2023-01-26] MEDS ORDERED: METO50TA7 PO (12:25)
--- NOTE | 2023-01-26 12:25 | Discharge Summary ---
Discharge Summary Hospital Course Was the Problem List Reviewed?: Yes Problems/Dx: (1) SVT (supraventricular tachycardia) Status: Chronic Hospital Course Date of Admission: Jan 26, 2023 at 01:30 Admission Diagnosis : Family Physician/Provider: [place] Date of Discharge: 01/26/23 Discharge Diagnosis: [ ] Hospital Course: See H&P plan Labs and Pending Lab Test: Laboratory Tests 01/26/23 00:37: White Blood Count 8.2, Red Blood Count 4.97, Hemoglobin 17.0, Hematocrit 49, Mean Corpuscular Volume 98, Mean Corpuscular Hemoglobin 34, Mean Corpuscular Hemoglobin Concent 35, Red Cell Distribution Width 11.6, Platelet Count 162, Mean Platelet Volume 10.9, Immature Granulocyte % (Auto) 0, Neutrophils (%) (Auto) 35L, Lymphocytes (%) (Auto) 52H, Monocytes (%) (Auto) 8, Eosinophils (%) (Auto) 5, Basophils (%) (Auto) 1, Neutrophils # (Auto) 2.9, Lymphocytes # (Auto) 4.3H, Monocytes # (Auto) 0.6, Eosinophils # (Auto) 0.4H, Basophils # (Auto) 0.0, Immature Granulocyte # (Auto) 0.0, Prothrombin Time 13.7, INR Comment 1.0, Activated Partial Thromboplast Time 35, D-Dimer < 0.27, Sodium Level 142, Potassium Level 4.1, Chloride Level 104, Carbon Dioxide Level 25, Anion Gap 13, Blood Urea Nitrogen 11, Creatinine 1.24, Estimat Glomerular Filtration Rate 67, BUN/Creatinine Ratio 9, Glucose Level 151H, Calcium Level 9.1, Corrected Calcium 8.8, Magnesium Level 2.1, Total Bilirubin 0.7, Aspartate Amino Transf (AST/SGOT) 83H, Alanine Aminotransferase (ALT/SGPT) 111H, Alkaline Phosphatase 107, Total Creatine Kinase 174, Creatine Kinase MB 4.7, Myoglobin 46.3, Troponin I < 0.028, B-Type Natriuretic Peptide 209.8H, Total Protein 7.8, Albumin 4.4, Amylase Level 101, Lipase 257H, TSH [place] Testing 3.41, Serum Alcohol 12H 01/26/23 01:08: Urine Color YELLOW, Urine Clarity CLEAR, Urine pH 7.0, Urine Specific [place] 1.010L, Urine Protein NEGATIVE, Urine Glucose (UA) NEGATIVE, Urine Ketones NEGATIVE, Urine Nitrite NEGATIVE, Urine Bilirubin NEGATIVE, Urine Urobilinogen 0.2, Urine Leukocyte Esterase NEGATIVE, Urine RBC (Auto) TRACEH, Urine RBC NONE, Urine WBC NONE, Urine Crystals NONE, Urine Bacteria NEGATIVE, Urine Casts NONE, Urine Mucus NEGATIVE, Urine Culture Indicated NO, Urine Opiates Screen NEGATIVE, Urine Oxycodone Screen NEGATIVE, Urine Methadone Screen NEGATIVE, Urine Barbiturates Screen NEGATIVE, Ur Tricyclic Antidepressants Screen NEGATIVE, Urine Phencyclidine Screen NEGATIVE, Urine Amphetamines Screen NEGATIVE, Urine Methamphetamines Screen NEGATIVE, Urine Benzodiazepines Screen NEGATIVE, Urine Cocaine Screen NEGATIVE, Urine Cannabinoids Screen NEGATIVE 01/26/23 03:47: White Blood Count 6.2, Red Blood Count 4.21L, Hemoglobin 14.6, Hematocrit 41, Mean Corpuscular Volume 97, Mean Corpuscular Hemoglobin 35H, Mean Corpuscular Hemoglobin Concent 36, Red Cell Distribution Width 11.3, Platelet Count 125L, Mean Platelet Volume 12.0, Immature Granulocyte % (Auto) 0, Neutrophils (%) (Auto) 43, Lymphocytes (%) (Auto) 42, Monocytes (%) (Auto) 8, Eosinophils (%) (Auto) 6, Basophils (%) (Auto) 1, Neutrophils # (Auto) 2.7, Lymphocytes # (Auto) 2.6, Monocytes # (Auto) 0.5, Eosinophils # (Auto) 0.4H, Basophils # (Auto) 0.0, Immature Granulocyte # (Auto) 0.0, Sodium Level 141, Potassium Level 4.1, Chloride Level 109H, Carbon Dioxide Level 21, Anion Gap 11, Blood Urea Nitrogen 12, Creatinine 0.90, Estimat Glomerular Filtration Rate 98, BUN/Creatinine Ratio 13, Glucose Level 126H, Calcium Level 8.1L, Corrected Calcium 8.4L, Magnesium Level 1.8, Total Bilirubin 0.5, Aspartate Amino Transf (AST/SGOT) 56H, Alanine Aminotransferase (ALT/SGPT) 87H, Alkaline Phosphatase 96, Troponin I < 0.028, T otal Protein 6.1L, Albumin 3.6, Percent Immature Platelet Fraction 8.7H, Phosphorus Level 3.3, Triglycerides Level 411H, Cholesterol Level 128, LDL Cholesterol Direct 60, VLDL Cholesterol , HDL Cholesterol 30L 01/26/23 06:35: Troponin I < 0.028 Home Meds Active Toprol Xl (Metoprolol Succinate) 50 Mg Tab.er.24h 50 Mg PO BID Reported Aspirin EC (Aspirin) 81 Mg Tablet.dr 81 Mg PO HS Atorvastatin Calcium 20 Mg Tablet 20 Mg PO HS Assessment/Pt Instructions PCP in 1 week Discharge Planning: <30 minutes discharge planning Discharge Instructions Discharge Diet: No Restrictions Discharge Physical Examination Vital Signs Vital Signs Date Time Temp Pulse Resp B/P (MAP) Pulse Ox O2 Delivery O2 Flow Rate FiO2 01/26/23 12:01 Room Air 01/26/23 11:48 36.2 01/26/23 11:00 54 10 97 General Appearance: No Apparent Distress, WD/WN Allergies: Coded Allergies: No Known Drug Allergies (Unverified , 05/12/22) Discharge Summary Date of Admission Jan 26, 2023 at 01:30 Date of Discharge Discharge Date: Jan 26, 2023 ALO RAHMAN DO Jan 26, 2023 12:25
[2023-01-26] MEDS ORDERED: DILT240C91 PO (14:52)
[2023-01-26] MEDS ORDERED: METO-352 PO (14:52)
--- NOTE | 2023-01-26 15:00 | Consultation-Cardiology ---
HPI-Cardiology Cardiology Consultation: Date of Consultation 01/26/23 Time Seen by a Provider: 14:45 Date of Admission Attending Physician [place] Admitting Physician Admitting Physician: Devi Baum DO Attending Physician: Devi Baum DO Consulting Physician MALENA HOPPER MD, MA, FACP, FACC, FSCAI, CCDS HPI: Chief Complaint: SVT Chest discomfort during SVT Mr. Justice is a 62 yr old male admitted to ICU with SVT and chest discomfort. He reports he started to feel unwell a few days ago. He states he would have episodes of chest pressure with associated fast heartbeat. He reports feeling SOB with the episodes. He states the episodes would last for several minutes and then resolve; but they were occurring several times a day. He states he did go to [place] last evening where he had a few beers. He states the episodes of palpitations and chest pressure continuously were getting worse so he came to the ED. He reports he is currently feeling better. He reports he is only taking his cholesterol medicine and baby ASA. He was previously taking Toprol, but quit d/t running out of the medication. He denies any syncope, near syncope. No c/o LE swelling. No c/o n/v/d. No c/o fever or chills. Review of Systems-Cardiology Review of Systems Constitutional: As described under HPI; No chills, No fever Eyes: No vision change Ears/Nose/Throat: No epistaxis, No recent hearing loss Respiratory: As described under HPI Cardiovascular: As described under HPI Gastrointestinal: No constipation, No diarrhea, No nausea, No vomiting Genitourinary: No dysuria, No hematuria Musculoskeletal: no symptoms reported Skin: No rash on exposed areas, No ulcerations on exposed areas Psychiatric/Neurological: No anxiety, No depression, No seizure, No focal weakness, No syncope Hematologic: No bleeding abnormalities [id number] Hx Patient Social History Smoking Status: Current Everyday Smoker Alcohol Use?: Yes Tobacco type used: Cigarettes Immunizations Up To Date Date of Influenza Vaccine: Jan 26, 2023 Past Medical History PMH As described under Assessment. Family Medical History Family Medical History: He believes his father may have had heart trouble, but he is unsure Allergies and Home Medications Allergies Coded Allergies: No Known Drug Allergies (Unverified , 05/12/22) Patient Home Medication List Home Medication List Reviewed: Yes Aspirin (Aspirin EC) 81 Mg Tablet.dr, 81 MG PO HS, (Reported) Entered as Reported by: MISSAEL FARNSWORTH on 11/24/22 1048 Atorvastatin Calcium (Atorvastatin Calcium) 20 Mg Tablet, 20 MG PO HS, (Reported) Entered as Reported by: MISSAEL FARNSWORTH on 11/24/22 1048 Diltiazem HCl (Diltiazem 24Hr ER) 240 Mg Cap.er.24h, 240 MG PO DAILY Prescribed by: PADIMNI LUU on 01/26/23 1452 Metoprolol Succinate (Toprol Xl) 50 Mg Tab.er.24h, 50 MG PO BID Prescribed by: PADMINI LUU on 11/25/22 0931 Metoprolol Succinate (Toprol Xl) 50 Mg Tab.er.24h, 50 MG PO HS Prescribed by: PADMINI LUU on 01/26/23 1452 Physical Exam-Cardiology Physical Exam Vital Signs/I&O 01/26/23 01/26/23 01/26/23 01/26/23 03:00 03:02 03:15 03:30 Pulse 87 80 84 74 Resp 17 15 24 11 B/P (MAP) 120/84 (97) 111/88 (95) 116/77 (93) 109/73 (83) Pulse Ox 96 96 95 96 O2 Delivery Room Air Room Air Room Air Room Air 01/26/23 01/26/23 01/26/23 01/26/23 03:45 03:48 04:00 04:15 Pulse 88 69 168 Resp 20 9 29 B/P (MAP) 124/81 (96) 102/63 (71) Pulse Ox 96 97 95 O2 Delivery Room Air Room Air Room Air Room Air 01/26/23 01/26/23 01/26/23 01/26/23 04:30 04:45 05:00 05:04 Pulse 78 87 86 94 Resp 23 B/P (MAP) 121/78 (87) 119/75 (86) 113/74 (89) 113/74 Pulse Ox 97 96 97 O2 Delivery Room Air Room Air Room Air 01/26/23 01/26/23 01/26/23 01/26/23 05:15 05:15 05:30 05:45 Pulse 67 110 76 92 Resp 9 15 B/P (MAP) 114/75 (87) 113/74 97/70 (83) Pulse Ox 96 96 97 O2 Delivery Room Air Room Air Room Air 01/26/23 01/26/23 01/26/23 01/26/23 06:00 06:15 07:00 07:00 Pulse 68 64 70 56 Resp 12 16 12 B/P (MAP) 111/82 (94) 117/80 (97) 118/81 (93) Pulse Ox 95 95 96 O2 Delivery Room Air Room Air Room Air 01/26/23 01/26/23 01/26/23 01/26/23 07:55 08:00 08:25 09:00 Temp 36.4 Pulse 54 65 Resp 10 13 B/P (MAP) 115/77 (90) 115/83 (94) Pulse Ox 96 96 O2 Delivery Room Air Room Air Room Air 01/26/23 01/26/23 01/26/23 01/26/23 10:00 11:00 11:48 12:01 Temp 36.2 Pulse 54 54 Resp 16 10 B/P (MAP) 114/90 (98) 127/87 (100) Pulse Ox 98 97 O2 Delivery Room Air Room Air Room Air 01/26/23 13:00 Pulse 68 Capillary Refill : Less Than 3 Seconds Constitutional: AAO x 3, well-developed, well-nourished HEENT: PERRL, hearing is well preserved, oral hygience is good Neck: No carotid bruit; carotid pulses are 2 + bilaterally Respiratory: No accessory muscle use, No respiratory distress; chest expansion is symmetric, chest is bilaterally symmetric, lungs clear to auscultation Cardiovascular: No JVD; S1 and S2, other (irregular) Gastrointestinal: No tender; soft, round, audible bowel sounds Extremities: no lower extremity edema bilateral Neurologic/Psychiatric: other (moves all extremities) Skin: No rash on exposed areas, No ulcerations on exposed areas Data Review Labs Laboratory Tests 01/26/23 00:37: White Blood Count 8.2, Red Blood Count 4.97, Hemoglobin 17.0, Hematocrit 49, Mean Corpuscular Volume 98, Mean Corpuscular Hemoglobin 34, Mean Corpuscular He moglobin Concent 35, Red Cell Distribution Width 11.6, Platelet Count 162, Mean Platelet Volume 10.9, Immature Granulocyte % (Auto) 0, Neutrophils (%) (Auto) 35L, Lymphocytes (%) (Auto) 52H, Monocytes (%) (Auto) 8, Eosinophils (%) (Auto) 5, Basophils (%) (Auto) 1, Neutrophils # (Auto) 2.9, Lymphocytes # (Auto) 4.3H, Monocytes # (Auto) 0.6, Eosinophils # (Auto) 0.4H, Basophils # (Auto) 0.0, Immature Granulocyte # (Auto) 0.0, Prothrombin Time 13.7, INR Comment 1.0, Activated Partial Thromboplast Time 35, D-Dimer < 0.27, Sodium Level 142, Potassium Level 4.1, Chloride Level 104, Carbon Dioxide Level 25, Anion Gap 13, Blood Urea Nitrogen 11, Creatinine 1.24, Estimat Glomerular Filtration Rate 67, BUN/Creatinine Ratio 9, Glucose Level 151H, Calcium Level 9.1, Corrected Calcium 8.8, Magnesium Level 2.1, Total Bilirubin 0.7, Aspartate Amino Transf (AST/SGOT) 83H, Alanine Aminotransferase (ALT/SGPT) 111H, Alkaline Phosphatase 107, Total Creatine Kinase 174, Creatine Kinase MB 4.7, Myoglobin 46.3, Troponin I < 0.028, B-Type Natriuretic Peptide 209.8H, Total Protein 7.8, Albumin 4.4, Amylase Level 101, Lipase 257H, TSH [place] Testing 3.41, Serum Alcohol 12H 01/26/23 01:08: Urine Color YELLOW, Urine Clarity CLEAR, Urine pH 7.0, Urine Specific [place] 1.010L, Urine Protein NEGATIVE, Urine Glucose (UA) NEGATIVE, Urine Ketones NEGATIVE, Urine Nitrite NEGATIVE, Urine Bilirubin NEGATIVE, Urine Urobilinogen 0.2, Urine Leukocyte Esterase NEGATIVE, Urine RBC (Auto) TRACEH, Urine RBC NONE, Urine WBC NONE, Urine Crystals NONE, Urine Bacteria NEGATIVE, Urine Casts NONE, Urine Mucus NEGATIVE, Urine Culture Indicated NO, Urine Opiates Screen NEGATIVE, Urine Oxycodone Screen NEGATIVE, Urine Methadone Screen NEGATIVE, Urine Barbiturates Screen NEGATIVE, Ur Tricyclic Antidepressants Screen NEGATIVE, Urine Phencyclidine Screen NEGATIVE, Urine Amphetamines Screen NEGATIVE, Urine Methamphetamines Screen NEGATIVE, Urine Benzodiazepines Screen NEGATIVE, Urine Cocaine Screen NEGATIVE, Urine Cannabinoids Screen NEGATIVE 01/26/23 03:47: White Blood Count 6.2, Red Blood Count 4.21L, Hemoglobin 14.6, Hematocrit 41, Mean Corpuscular Volume 97, Mean Corpuscular Hemoglobin 35H, Mean Corpuscular Hemoglobin Concent 36, Red Cell Distribution Width 11.3, Platelet Count 125L, Mean Platelet Volume 12.0, Immature Granulocyte % (Auto) 0, Neutrophils (%) ( Auto) 43, Lymphocytes (%) (Auto) 42, Monocytes (%) (Auto) 8, Eosinophils (%) (Auto) 6, Basophils (%) (Auto) 1, Neutrophils # (Auto) 2.7, Lymphocytes # (Auto) 2.6, Monocytes # (Auto) 0.5, Eosinophils # (Auto) 0.4H, Basophils # (Auto) 0.0, Immature Granulocyte # (Auto) 0.0, Sodium Level 141, Potassium Level 4.1, Chloride Level 109H, Carbon Dioxide Level 21, Anion Gap 11, Blood Urea Nitrogen 12, Creatinine 0.90, Estimat Glomerular Filtration Rate 98, BUN/Creatinine Ratio 13, Glucose Level 126H, Calcium Level 8.1L, Corrected Calcium 8.4L, Magnesium Level 1.8, Total Bilirubin 0.5, Aspartate Amino Transf (AST/SGOT) 56H, Alanine A minotransferase (ALT/SGPT) 87H, Alkaline Phosphatase 96, Troponin I < 0.028, Total Protein 6.1L, Albumin 3.6, Percent Immature Platelet Fraction 8.7H, Phosphorus Level 3.3, Triglycerides Level 411H, Cholesterol Level 128, LDL Cholesterol Direct 60, VLDL Cholesterol , HDL Cholesterol 30L 01/26/23 06:35: Troponin I < 0.028 A/P-Cardiology Assessment/Admission Diagnosis SVT - previously dx at time of ED visit to [facility] April 2022 - noncompliance with therapy recommended for PSVT - has refused EP referral for consideration of ablation - desired conservative tx only (per office note of 12-03-22) - converted to SR following 12mg of Adenosine in the ED - continued to have episodes of break-through SVT overnight Chest pain (associated with episodes of SVT) - Card cath of 11/24/22: No CAD seen, LVEF 60%, LVEDP 12 mmHg - Echo on 11/24/22: LVEF 50-55%, mild MR, PASP 25-30 mmHg Liver enzyme elevation - undetermined etiology - management per medical services H/o tobacco use - cigs - cessation advised ETOH Discussion and Recomendations Recurrent SVT with chest discomfort associated with episodes of rapid heartbeat - no evidence of ACS (see previous cardiac work up) - currently on Cardizem gtt - change to oral - received oral Toprol XL at 1:30 this morning - HR improved - again advise EP consult for consideration of SVT ablation as out pt Liver enzyme elevation - improving Advised smoking cessation Advised ETOH cessation Advised compliance with treatment Monitor lab Replace electrolytes Ok to d/c if remains stable on oral regimen (Cardizem CD 240 po daily, Toprol XL 50 po daily) MALENA HOPPER MD FACP FACC CCDS Jan 26, 2023 15:00
[2023-01-26 16:25] VITALS: BP 116/85
== END 2023-01-26 16:05 | disposition home or self-care (01) | DRG 310 ==
LOC: EDUNIT# 00:25 → ER 00:28 → ICU 01:30
PROVIDERS: ADMIT Internal Medicine; ATTEND Internal Medicine
DX: I47.10 Supraventricular tachycardia, unspecified (principal); I10 Essential (primary) hypertension; E78.00 Pure hypercholesterolemia, unspecified; F17.210 Nicotine dependence, cigarettes, uncomplicated; R74.01 Elevation of levels of liver transaminase levels; R74.8 Abnormal levels of other serum enzymes; F10.90 Alcohol use, unspecified, uncomplicated; Z91.148 Patient's other noncompliance with medication regimen for other reason; Y90.0 Blood alcohol level of less than 20 mg/100 ml; Z79.82 Long term (current) use of aspirin; Z79.899 Other long term (current) drug therapy
CPT/HCPCS: 36415; 71045; 80053; 80061; 80306; 80320; 81000; 82150; 82550; 82553; 83690; 83735; 83874; 83880; 84100; 84443; 84484; 85025; 85379; 85610; 85730; 87081; 93005; 93041